=== PATIENT | female | born 1965 | race Caucasian/White ===

== ENCOUNTER 2019-07-16 05:54 | Inpatient (IN) | payer OTHER ==
[2019-07-03 11:28] VITALS: BMI 34.0
[2019-07-16] MEDS ORDERED: CEFAZOLIN 2 GM in DEXTROSE 5%-WATER - 50 ML IVPB ONE (06:24)
[2019-07-16] MEDS ORDERED: VANCOMYCIN 1,250 MG in DEXTROSE 5%-WATER - 250 ML IVPB ONE (06:24)
[2019-07-16] MEDS ORDERED: TRANEXAMIC ACID 1000 MG/10 ML VIAL IVPUSH ONE (06:24)
[2019-07-16] MEDS ORDERED: BUPIVACAINE HCL/PF 0.5% (5 MG/ML) 30 ML VIAL IJ ONE (06:51)
[2019-07-16] MEDS ORDERED: MIDAZOLAM HCL 2 MG/2 ML SINGLE DOSE VIAL ONE ×3 (06:51→08:53)
[2019-07-16] MEDS ORDERED: ceFAZolin SODIUM 1 GM VIAL ONE ×2 (07:46→10:33)
[2019-07-16] MEDS ORDERED: VANCOMYCIN 1,000 MG VIAL (RESTRICTED TO ID ONLY) ONE ×2 (07:46→07:51)
[2019-07-16] MEDS ORDERED: PROPOFOL 20 ML ONE ×4 (07:46→11:00)
--- NOTE | 2019-07-16 08:05 | HP ---
History & Physical Update - History History: No Change - Physical Physical: No Change - Assessment Assessment: No Change - Plan Plan: No Change (no changes since 06/26/19)
[2019-07-16] MEDS ORDERED: BENZOIN/ALOE VERA/STORAX/TOLU 58 ML BOTTLE ONE (09:13)
[2019-07-16] MEDS ORDERED: oxyCODONE HCL 5 MG TABLET PO PRN (09:31)
[2019-07-16] MEDS ORDERED: ONDANSETRON 4 MG/2 ML VIAL IVPUSH PRN ×2 (09:31→10:42)
[2019-07-16] MEDS ORDERED: PROMETHAZINE HCL 25 MG/1 ML VIAL IVPUSH PRN (09:31)
[2019-07-16] MEDS ORDERED: oxyCODONE HCL 10 MG SUSTAINED ACTING TABLET PO SCH (10:00)
[2019-07-16] MEDS ORDERED: MAGNESIUM HYDROX 2400MG/30ML ORAL SUSPENSION 30 ML CUP PO PRN (10:42)
[2019-07-16] MEDS ORDERED: MAG HYDROX/AL HYDROX/SIMETH 30 ML UNIT-DOSE CUP PO PRN (10:42)
[2019-07-16] MEDS ORDERED: ALBUTEROL SO4 HFA INHALER IH PRN (10:44)
[2019-07-16] MEDS ORDERED: IMMUNE GLOBULIN IV SCH (10:45)
[2019-07-16] MEDS ORDERED: LACTATED RINGERS SOLUTION 1,000 ML IV SCH (10:45)
[2019-07-16] MEDS ORDERED: [UNRECOGNIZED DRUG - OTHER] IV SCH (10:45)
--- NOTE | 2019-07-16 10:48 | PN ---
Progress Note (short form) - Note Progress Note: 54F s/p right BARBY POD #0. -Pain control. -Ancef 2g IV q6h x 3 doses post-op. -DVT PPx: - Chemical: ASA 81mg PO BID x 6 weeks. - Mechanical: RISA's, SCD's. -Incentive spirometry. -PT/OT/Rehab, OOB. -WBAT RLE. -Right hip precautions. -Hip abduction pillow: straps loose, not tight. -f/u AM labs. -f/u drain output. -Care per medical hospitalist team. -Discharge planning: f/u 7-10 days at [facility] [place] office; call for appointment; . -Will follow. Ishmael Horn MD (Orthopaedic Surgery).
--- NOTE | 2019-07-16 10:50 | OP ---
Operative Note - Note: Operative Date: 07/16/19 Pre-Operative Diagnosis: Right hip DJD Operation: Right BARBY Implants: [place]. Cup - Trident II-Triathlon, 52mm, cluster. 1 x 25mm acetabular screw. Poly - 28mm, neutral. Stem - Accolade II, 127 deg NSA, #4. Head - 28mm diameter, -4mm length Biolox/Delta Ceramic Post-Operative Diagnosis: Same as Pre-op Surgeon: Ishmael Horn Tele Marketing Executive: Hiro Horn Anesthesiologist/BUSINESS MACHINE OPERATOR: Pato Arauz Anesthesia: General Specimens Removed: Right femoral head Estimated Blood Loss (mls): 200 Drains & Tubes with Location: 1 x superficial HemoVac Fluid Volume Replaced (mls): 1,000 (Crystalloid) Operative Report Dictated: Yes
[2019-07-16] MEDS ORDERED: DEXAMETHASONE SOD PHOSPHATE 4 MG/1 ML VIAL ONE (11:07)
[2019-07-16] MEDS ORDERED: ONDANSETRON 4 MG/2 ML VIAL ONE ×2 (11:07→11:46)
[2019-07-16] MEDS: ACETAMINOPHEN 325 MG TABLET (FP) PO SCH ×3 (12:00→21:58)
--- NOTE | 2019-07-16 15:05 | HP ---
HISTORY OF PRESENT ILLNESS: 54 year-old female with a PMH significant for right HTN, HLD, Type II IDDM, HIV AIDS, CVID, granulomatous lung disease, recurrent HSV, Keerthi's syndrome, asthma, RICCARDO on CPAP, GERD, and right hip DJD s/p right total hip arthroplasty with Dr. Ishmael Horn on 07/16/2019. 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 Recurrent HSV on suppressive therapy Keerthi's syndrome Asthma GERD RICCARDO on CPAP 11cm H2O CFlex+1 SIMPLUS FF PAST SURGICAL HISTORY: Cholecystectomy Tonsillectomy NE Total hip arthroplasty 2008 Social History: single Smoking: former; smoked [id number] Alcohol: no Drugs: no Allergies moxifloxacin [From Avelox] Allergy (Severe, Verified 07/03/19 10:52) Rash HOME MEDICATIONS: Home Medications Medication Instructions Recorded Albuterol Sulfate Inhaler - 1 - 2 inh PO QID PRN 07/03/19 [Ventolin Hfa Inhaler -] Amlodipine Besylate 10 mg PO DAILY 07/03/19 Azelastine HCl 137 mcg NS DAILY 07/03/19 Bimatoprost [Lumigan] 1 drop OU HS 07/03/19 Calcium Carbonate [Calcium] 600 mg PO DAILY 07/03/19 Dolutegravir Sodium [Tivicay] 50 mg PO HS 07/03/19 Emtricitabine/Tenofov Alafenam 1 each PO HS 07/03/19 [Descovy 200-25 mg Tablet (Nf)] Ferrous Sulfate 325 mg PO DAILY 07/03/19 Fexofenadine HCl 180 mg PO DAILY 07/03/19 Fluticasone Propionate 16 gm NS BID 07/03/19 Immun Glob G(IgG)-[place]/Maltose 48 ml IV ASDIR 07/03/19 [Cutaquig 16.5% (8 G/48 ml) Vl] Insulin Glargine,Hum.rec.anlog 35 unit SQ HS 07/03/19 [Lantus Solostar] Liraglutide [Victoza -] 1.8 mg SQ DAILY 07/03/19 Lisinopril [Prinivil -] 40 mg PO DAILY 07/03/19 Mometasone/Formoterol [Dulera 200 2 inh IH BID 07/03/19 Mcg/5 Mcg Inhaler] Montelukast Sodium [Singulair] 10 mg PO HS 07/03/19 Omeprazole 20 mg PO DAILY 07/03/19 Oxycodone HCl 30 mg PO Q6H 07/03/19 Pioglitazone HCl [Actos] 30 mg PO DAILY 07/03/19 Rosuvastatin Calcium [Crestor] 10 mg PO HS 07/03/19 Ursodiol 250 mg PO BID 07/03/19 Valacyclovir HCl [Valtrex] 1,000 mg PO DAILY 07/03/19 metFORMIN HCL [Metformin HCl] 850 mg PO BID 07/03/19 Prednisone [Prednisone 50 MG 50 mg PO ONCE 07/16/19 TABLETS] REVIEW OF SYSTEMS CONSTITUTIONAL: Absent: fever, chills, diaphoresis, generalized weakness, malaise, loss of appetite, weight change HEENT: Absent: rhinorrhea, nasal congestion, throat pain, throat swelling, difficulty swallowing, mouth swelling, ear pain, eye pain, visual changes CARDIOVASCULAR: Absent: chest pain, syncope, palpitations, irregular heart rate, lightheadedness , peripheral edema RESPIRATORY: Absent: cough, shortness of breath, dyspnea with exertion, orthopnea, wheezing, stridor, hemoptysis GASTROINTESTINAL: Absent: abdominal pain, abdominal distension, nausea, vomiting, diarrhea, constipation, melena, hematochezia GENITOURINARY: Absent: dysuria, frequency, urgency, hesitancy, hematuria, flank pain, genital pain MUSCULOSKELETAL: Absent: myalgia, arthralgia, joint swelling, back pain, neck pain SKIN: Absent: rash, itching, pallor HEMATOLOGIC/IMMUNOLOGIC: Absent: easy bleeding, easy bruising, lymphadenopathy, frequent infections ENDOCRINE: Absent: unexplained weight gain, unexplained weight loss, heat intolerance, cold intolerance NEUROLOGIC: Absent: headache, focal weakness or paresthesias, dizziness, unsteady gait, seizure, mental status changes, bladder or bowel incontinence PSYCHIATRIC: Absent: anxiety, depression, suicidal or homicidal ideation, hallucinations. PHYSICAL EXAMINATION Vital Signs - 24 hr 07/16/19 07/16/19 07/16/19 06:30 11:26 11:30 Temperature 98.5 F 97.5 F L Pulse Rate 76 78 62 Respiratory 18 16 16 Rate Blood Pressure 144/76 116/64 100/70 O2 Sat by Pulse 95 95 Oximetry (%) 07/16/19 07/16/19 07/16/19 11:35 11:40 11:55 Temperature Pulse Rate 68 62 65 Respiratory 16 16 16 Rate Blood Pressure 104/56 L 94/74 135/75 O2 Sat by Pulse 95 95 97 Oximetry (%) 07/16/19 07/16/19 07/16/19 12:05 12:10 12:31 Temperature 97.5 F L 97.4 F L Pulse Rate 62 62 71 Respiratory 16 16 18 Rate Blood Pressure 122/78 122/78 112/60 O2 Sat by Pulse 97 97 95 Oximetry (%) 07/16/19 13:35 Temperature 97.4 F L Pulse Rate 76 Respiratory 19 Rate Blood Pressure 123/63 O2 Sat by Pulse 96 Oximetry (%) GENERAL: Awake, alert, and fully oriented, in no acute distress. HEAD: Normal with no signs of trauma. EYES: Pupils equal, round and reactive to light, extraocular movements intact, sclera anicteric, conjunctiva clear. No lid lag. EARS, NOSE, THROAT: Ears normal, nares patent, oropharynx clear without exudates. Moist mucous membranes. NECK: Normal range of motion, supple without lymphadenopathy, JVD, or masses. LUNGS: Breath sounds equal, clear to auscultation bilaterally. No wheezes, and no crackles. No accessory muscle use. HEART: Regular rate and rhythm, normal S1 and S2 without murmur, rub or gallop. ABDOMEN: Soft, nontender, not distended, normoactive bowel sounds, no guarding, no rebound, no masses. No hepatomegaly or splenomegaly. MUSCULOSKELETAL: Normal range of motion at all joints. No bony deformities or tenderness. No CVA tenderness. UPPER EXTREMITIES: 2+ pulses, warm, well-perfused. No cyanosis. No clubbing. No peripheral edema. LOWER EXTREMITIES: 2+ pulses, warm, well-perfused. No calf tenderness. No peripheral edema. NEUROLOGICAL: Cranial nerves II-XII intact. Normal speech. Normal gait. PSYCHIATRIC: Cooperative. Good eye contact. Appropriate mood and affect. SKIN: Warm, dry, normal turgor, no rashes or lesions noted, normal capillary refill. Laboratory Results - last 24 hr 07/16/19 07/16/19 06:33 11:43 POC Glucometer 158 127 Pre op BUN 14 Cr 0.5 Hgb 13.0 Intra op Vanc 1g; Ancef 2g, redosed 1g EBL 200mL LR 1100mL ASSESSMENT/PLAN: 54 year-old female with a PMH significant for right HTN, HLD, Type II IDDM, HIV AIDS, CVID, granulomatous lung disease, recurrent HSV, [place]'s syndrome, asthma, RICCAROD on CPAP, GERD, and right hip DJD s/p right total hip arthroplasty with Dr. Ishmael Horn on 07/16/2019. 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 treatment --duonebs TID scheduled and albuterol neb PRN Recurrent HSV on suppressive therapy Keerthi's syndrome --continue valacyclovir PO GERD --protonix RICCARDO on CPAP 11cm H2O CFlex+1 SIMPLUS FF --reviewed pulmonary pre-op evaluation, use CPAP whenever sleeping or receiving sedating medications; nursing 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 Full code. Visit type - Emergency Visit Emergency Visit: Yes ED Registration Date: 07/16/19 Care time: The patient presented to the Emergency Department on the above date and was hospitalized for further evaluation of their emergent condition. - New Patient This patient is new to me today: Yes Date on this admission: 07/16/19 - Critical Care Critical Care patient: No
[2019-07-16] MEDS ORDERED: ALBUTEROL SO4 0.083% IH SOL 2.5 MG/3 ML VIAL.NEB. NEB PRN (16:17)
--- NOTE | 2019-07-16 16:23 | OP ---
DATE OF OPERATION: 07/16/2018 SURGEON: Ishmael Horn MD PUNCH OPERATOR: Hiro Horn MD; Maxine Amos PA-C PREOPERATIVE DIAGNOSIS: Osteoarthritis, right hip. POSTOPERATIVE DIAGNOSIS: Osteoarthritis, right hip, in an HIV-positive patient. OPERATION PERFORMED: Right cemented total hip arthroplasty. ANESTHESIA: Spinal anesthesia with conscious sedation. ANTIBIOTICS GIVEN: Ancef 2 g, vancomycin 1 g preoperative, Ancef 1 g given at the time of seating of the components, liberal washout throughout the operation. OPERATION IN DETAIL: The patient was correctly identified, brought in the operating room. The right lower extremity was prepped and draped in the routine manner with Betadine scrub solution, wiped off with alcohol, DuraPrep applied. A free drape was applied to the right lower extremity. Imaging was available for intraoperative evaluation. Timeout was called. With the hip and knee flexed at 45 degrees, incision was made centered over the greater trochanter, proximal lateral thigh incision. We opened the subcutaneous tissues. The fascia was adherent to the underlying musculature, which is an unusual finding, required sharp dissection to dissect the actual fascia off the actual muscle. Charnley retractors were placed in the subfascial plane to expose the hip abductor mechanism using an anterior biased direct lateral approach. The dissection was taken down to the anterior aspect of the femoral neck. From superolateral to inferomedially, the capsule was incised and radial incisions were made anteriorly and then the entire capsule was lifted from the femoral neck and head to expose the head and neck clearly under vision. With flexion, adduction, external rotation mechanism, the hip was dislocated with no difficulty. Blunt Hohmanns were placed around the femoral neck from superior and inferior. The femoral neck cut was made. Because of the shortening of the right lower extremity, we elected to save more femoral neck than usual in order to equilibrate leg length. As a result of this, the neck cut was made about 1.5 cm above the lesser trochanter. Anterior, posterior, inferior retractors were inserted. The appropriate obturator externus and internus muscles, which were tight external rotators, were transected. This freed the external rotational deformity significantly. A Charnley pin was placed in the superolateral aspect of the bone bed to hold the muscle out of harm's way. The acetabulum, the labrum, and peripheral tissue was resected. Reaming was to size 52, and a size 52 Trident II titanium cup with a 28-mm neutral liner was inserted. The press-fit was solid. It was about 10 degrees anteverted and the cup was closed in inclination of about 40 degrees. I seated 1 screw to augment fixation of the press-fit, simply based on the fact that this lady's osteoarthritis is most likely secondary to retroviral drugs and I was unhappy about the quality of the bone bed to hold the cup appropriately and thus augmented its fixation. Once it had been performed and we were very satisfied with the seating of the cup and how it was positioned, no peripheral bone was necessary to osteotomize. The hip was adducted, externally rotated, the hip abductor mechanism held out of harm's way. The jukebox checker was utilized to enter the trochanter. The lateral reamer was sunk into the bone. The broaching was sequentially up to size 4, and a trial with a high-offset 127-mm neck shaft angle Accolade broach with a -4 ceramic head produced the reduction of the hip with full stability in flexion, adduction, internal rotation, as well as extension and external rotation, and enabled a complete stable hip. The leg length, when taking the pelvis into account, both legs were measured with the pelvis square and 90 degrees to the intercristal plane, the leg length was equal, the axillary line limb was perfect. Once this had been performed, we elected to go ahead with the definitive components. One gram of Ancef was then inserted. A size 4 Accolade stem, that is, 127-degree stem with a -4 ceramic head applied to the trunnion was inserted. This was reduced into position, giving the exact same findings as noted above. The wounds were thoroughly lavaged throughout the operation. The closure was as follows: Hip abductor mechanism with number 1 Vicryl, fascia 1 Vicryl, subcutaneous 1 and 2-0 Vicryl, skin with jeanette. A 1/8-inch Hemovac in subfascial plane. We used jeanette instead of intracuticular suture because of her general tissue status. No complications. Postoperative x-rays revealed excellent seating of the implants. MD PIERO [id number]
[2019-07-16] MEDS: CEFAZOLIN 2 GM/D5W 2 GM/50 ML ML IVPB SCH ×2 (16:38→22:11)
[2019-07-16] MEDS: oxyCODONE HCL 5 MG TABLET PO PRN ×3 (16:38→23:24)
[2019-07-16] MEDS: ALBUTEROL SO4 2.5/IPRATROPIUM 0.5 INH SOL 3 ML VIAL.NEB. NEB SCH (20:03)
[2019-07-16] MEDS ORDERED: PT OWN MED DRAWER 7, Y5N ONE (21:43)
[2019-07-16] MEDS: ASPIRIN 81 MG CHEWABLE TABLETS PO SCH (21:58)
[2019-07-16] MEDS: MONTELUKAST NA 10 MG TABLET PO SCH (21:59)
[2019-07-16] MEDS: ROSUVASTATIN CA 10 MG TABLET (FP) PO SCH (21:59)
[2019-07-16] MEDS ORDERED: PATIENT'S OWN MEDICATION (NON-FORMULARY) (Ursodiol [Ursodiol] 250 MG) PO SCH (22:00)
[2019-07-16] MEDS: EMTRICITABINE/TENOFOV ALAFENAM (DESCOVY) TABLET PO SCH (22:00)
[2019-07-16] MEDS: DOLUTEGRAVIR SODIUM 50 MG TABLET (NON-FORMULARY) PO SCH (22:01)
[2019-07-16] MEDS: FLUTICASONE PROP 0.05% 16 GM NASAL SPRAY NS SCH (22:03)
[2019-07-16] MEDS: SENNOSIDES/DOCUSATE COMBO (SENNA PLUS) TABLET (UD) PO SCH (22:04)
[2019-07-16] MEDS: BUDESONIDE/FORMETEROL FUMARATE 160/4.5 mcg INHALER IH SCH (22:05)
[2019-07-16] MEDS: LATANOPROST 0.005% OPHTH SOLN 2.5ML BOTTLE OU SCH (22:06)
[2019-07-16] MEDS: INSULIN (LEVEMIR) 100 UNITS/ML UNITS SQ SCH (22:15)
[2019-07-17] MEDS: oxyCODONE HCL 5 MG TABLET PO PRN ×4 (02:42→21:18)
[2019-07-17] MEDS: ACETAMINOPHEN 325 MG TABLET (FP) PO SCH ×4 (03:04→21:18)
[2019-07-17] MEDS: CEFAZOLIN 2 GM/D5W 2 GM/50 ML ML IVPB SCH (03:04)
--- NOTE | 2019-07-17 07:25 | PN ---
Progress Note, Physician Chief Complaint: POD# 1 s/p THR. c/o moderate post-operative pain. Awaiting PT to get OOB History of Present Illness: 54 year-old female with a PMH significant for right HTN, HLD, Type II IDDM, HIV AIDS, CVID, granulomatous lung disease, recurrent HSV, [place]'s syndrome, asthma, RICCARDO on CPAP, GERD, and right hip DJD s/p right total hip arthroplasty with Dr. Ishmael Horn on 07/16/2019. - Current Medication List Current Medications: Active Medications Acetaminophen (Tylenol -) 650 mg PO Q6H [facility] Stop: 07/19/19 09:44 Last Admin: 07/17/19 03:04 Dose: 650 mg Al Hydroxide/Mg Hydroxide (Mylanta Oral Suspension -) 30 ml PO Q4H PRN PRN Reason: DYSPEPSIA Albuterol Sulfate (Ventolin 0.083% Nebulizer Soln -) 1 amp NEB Q4H PRN PRN Reason: SHORT OF BREATH/WHEEZING Albuterol/Ipratropium (Duoneb -) 1 amp NEB RTID [facility] Last Admin: 07/16/19 20:03 Dose: 1 amp Amlodipine Besylate (Norvasc -) 10 mg PO DAILY [facility] Aspirin (Asa -) 81 mg PO BID [facility] Last Admin: 07/16/19 21:58 Dose: 81 mg Budesonide/Formoterol Fumarate (Symbicort 160/4.5mcg -) 2 puff IH BID [facility] Last Admin: 07/16/19 22:05 Dose: 2 sprays Calcium Carbonate (Os-Greg 500mg -) 500 mg PO DAILY [facility] Ferrous Sulfate (Feosol -) 325 mg PO DAILY [facility] Fluticasone Propionate (Flonase -) 1 spray NS BID [facility] Last Admin: 07/16/19 22:03 Dose: 1 spray Insulin Detemir (Levemir Vial) 35 units SQ HS [facility] Last Admin: 07/16/19 22:15 Dose: 35 units Latanoprost (Xalatan 0.005% Eye Drops -) 1 drop OU HS [facility] Last Admin: 07/16/19 22:06 Dose: 1 drp Lisinopril (Prinivil) 40 mg PO DAILY [facility] Magnesium Hydroxide (Milk Of Magnesia -) 30 ml PO PRN PRN PRN Reason: CONSTIPATION Montelukast Sodium (Singulair -) 10 mg PO [facility] Last Admin: 07/16/19 21:59 Dose: 10 mg Non-Formulary Medication (Ursodiol [Ursodiol]) 250 mg PO BID [facility] Ondansetron HCl (Zofran Injection) 4 mg IVPUSH Q6H PRN PRN Reason: NAUSEA AND/OR VOMITING Ondansetron HCl (Zofran Injection) 4 mg IVPUSH Q6H PRN PRN Reason: NAUSEA Last Admin: 07/16/19 11:53 Dose: 4 mg Oxycodone HCl (Roxicodone -) 5 mg PO Q3H PRN PRN Reason: PAIN LEVEL 1-5 Oxycodone HCl (Roxicodone -) 10 mg PO Q3H PRN PRN Reason: PAIN LEVEL 6-10 Last Admin: 07/17/19 07:00 Dose: 10 mg Pantoprazole Sodium (Protonix -) 40 mg PO DAILY [facility] Promethazine HCl (Phenergan Injection -) 12.5 mg IVPUSH Q6H PRN PRN Reason: NAUSEA-FOR RESCUE AFTER 15 MIN Rosuvastatin Calcium (Crestor -) 10 mg PO [facility] Last Admin: 07/16/19 21:59 Dose: 10 mg Senna/Docusate Sodium (Pericolace -) 2 tablet PO BID [facility] Last Admin: 07/16/19 22:04 Dose: 2 tablet Valacyclovir HCl (Valtrex -) 1,000 mg PO DAILY [facility] - Objective Vital Signs: Vital Signs Temperature 97.8 F 07/17/19 06:00 Pulse Rate 77 07/17/19 06:00 Respiratory Rate 17 07/17/19 06:00 Blood Pressure 121/65 07/17/19 06:00 O2 Sat by Pulse Oximetry (%) 97 07/17/19 02:00 Constitutional: Yes: Well Nourished, No Distress, Calm Eyes: Yes: WNL, Conjunctiva Clear HENT: Yes: WNL, Atraumatic, Normocephalic Neck: Yes: WNL, Supple, Trachea Midline Cardiovascular: Yes: WNL, Regular Rate and Rhythm Respiratory: Yes: WNL, Regular, CTA Bilaterally Gastrointestinal: Yes: WNL, Normal Bowel Sounds ...Rectal Exam: Yes: Deferred Genitourinary: Yes: WNL Breast(s): Yes: WNL Musculoskeletal: Yes: Back Pain Edema: No Peripheral Pulses WNL: Yes Peripheral Pulses: Left Radial: 2+, Right Radial: 2+, Left Doralis Pedis: 2+, Right Dorsalis Pedis: 2+, Left Femoral: 2+, Right Femoral: 2+ Integumentary: Yes: WNL Wound/Incision: Yes: Clean/Dry, Dressing Dry and Intact, Other ( +Hemovac drain) ...Motor Strength: WNL Psychiatric: Yes: WNL - ....Imaging X-ray: Report Reviewed (Hip: hip replace,ment with jeanette and soft tissue air) Problem List - Problems (1) HTN (hypertension) Assessment/Plan: normotensive c/w amlodipine, lisinopril Code(s): I10 - ESSENTIAL (PRIMARY) HYPERTENSION (2) HLD (hyperlipidemia) Assessment/Plan: c/w rosuvastatin Code(s): E78.5 - HYPERLIPIDEMIA, UNSPECIFIED (3) Diabetes type 2, controlled Assessment/Plan: BS well controlled BGM with Novolog sliding scale coverage c/w Levemir 35U hs diabetic diet Code(s): E11.9 - TYPE 2 DIABETES MELLITUS WITHOUT COMPLICATIONS (4) HIV (human immunodeficiency virus infection) Assessment/Plan: c/w Joana and Gem continue to monitor very closely for s/s of infection given immunocomprised state Code(s): B20 - HUMAN IMMUNODEFICIENCY VIRUS [HIV] DISEASE (5) Common variable immunodeficiency Assessment/Plan: on IVIG therapy [id number], next dose 08/05/2019 Code(s): D83.9 - COMMON VARIABLE IMMUNODEFICIENCY, UNSPECIFIED (6) Granulomatous lung disease Assessment/Plan: 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 treatment c/w duo nebs, flonase, singular Code(s): J84.10 - PULMONARY FIBROSIS, UNSPECIFIED (7) HSV (herpes simplex virus) infection Assessment/Plan: no active outbreaks c/w valcyclovir Code(s): B00.9 - HERPESVIRAL INFECTION, UNSPECIFIED (9) Asthma Assessment/Plan: stable c/w duo nebs, flonase, singular Code(s): J45.909 - UNSPECIFIED ASTHMA, UNCOMPLICATED (10) GERD (gastroesophageal reflux disease) Code(s): K21.9 - GASTRO-ESOPHAGEAL REFLUX DISEASE WITHOUT ESOPHAGITIS (11) RICCARDO on CPAP Assessment/Plan: 11cm H2O CFlex+1 SIMPLUS FF Code(s): G47.33 - OBSTRUCTIVE SLEEP APNEA (ADULT) (PEDIATRIC); Z99.89 - DEPENDENCE ON OTHER ENABLING MACHINES AND DEVICES (12) Prophylactic measure Assessment/Plan: FEN Fluids: adequate PO intake Electrolytes: monitor & replete as needed Nutrition: diabetic diet DVT moderate risk ASA 81mg PO BID x 6 weeks scd, early ambulation Dispo Maintain as inpatient full code discharge planning to SNF/Rehab Code(s): Z29.9 - ENCOUNTER FOR PROPHYLACTIC MEASURES, UNSPECIFIED (13) Status post total hip replacement, right Assessment/Plan: POD #1 --perioperative antibiotics per surgery-Ancef --pain management per surgery --ASA 81mg BID x 6 weeks --protonix --bowel regimen-miralax --incentive spirometry --Hemovac drain (60cc overnight), monitor output Code(s): Z96.641 - PRESENCE OF RIGHT ARTIFICIAL HIP JOINT (14) Hypomagnesemia Assessment/Plan: Mg 1.6 MagOx 800mg x 1 continue to monitor Code(s): E83.42 - HYPOMAGNESEMIA (15) Hypokalemia Assessment/Plan: K 3.6 K 20MEq x 1 continue to monitor Code(s): E87.6 - HYPOKALEMIA (16) Chronic pain following surgery or procedure Assessment/Plan: history of choronic pain on oxycodone 30mg q6h at home started on oxycontin 10mg BID as per surgery monitor level of pain bowel regimine Code(s): G89.28 - OTHER CHRONIC POSTPROCEDURAL PAIN Visit type - Emergency Visit Emergency Visit: Yes ED Registration Date: 07/16/19 Care time: The patient presented to the Emergency Department on the above date and was hospitalized for further evaluation of their emergent condition. - New Patient This patient is new to me today: Yes Date on this admission: 07/17/19 - Critical Care Critical Care patient: No - Discharge Referral Referred to [facility] Med P.C.: No
--- NOTE | 2019-07-17 07:54 | PN ---
Progress Note (short form) - Note Progress Note: Post op day#1.S/P RTH Arthropasty under spinal with R paravertebral block uneventful.Patient stable and c/o some pain for which she is on medication.No any anesthesia related problem.Patient DC from the anesthesia care.
[2019-07-17 07:58] LABS: CALCIUM 8.4 mg/dl (8.5-10); CREATININE 0.6 mg/dl (0.55-1.3); MAGNESIUM 1.6 mg/dL (1.8-2.4); POTASSIUM 3.6 mmol/L (3.5-5.1)
[2019-07-17] MEDS ORDERED: MAGNESIUM OXIDE 400 MG TABLET (FP) PO ONE (08:02)
[2019-07-17] MEDS ORDERED: POTASSIUM CHLORIDE TABS 20 MEQ TABLET.ER (FP) PO ONE (08:02)
[2019-07-17 08:14] LABS: BASO % 0.2 % (0-2.0); EOS % 0.4 % (0-4.5); HEMATOCRIT 34.7 % (32.4-45.2); HEMOGLOBIN 11.6 GM/dl (10.7-15.3); LYMPH % 20.7 % (8-40); MCH 30.3 pg (25.7-33.7); MCHC 33.3 g/dl (32.0-36.0); MEAN CELL VOLUME 90.9 fl (80-96); MONO % 8.7 % (3.8-10.2); PLATELET COUNT 327 K/MM3 (134-434); RBC 3.82 M/mm3 (3.60-5.2); RDW 14.9 % (11.6-15.6)
--- NOTE | 2019-07-17 08:41 | PN ---
Progress Note (short form) - Note Progress Note: Surgery POD #1 Right total hip arthroplasty patient seen and examined at bedside. Patient states she is having a lot of pain. She states that she was taking oxycodone 30mg q6hr at home for chronic pain. She has been OOB with assist to the bathroom and voiding. She is tolerating her diet and denies any CP, SOB, N/ V fever or chills. Vital Signs Temp 97.8 F 07/17/19 06:00 Pulse 77 07/17/19 06:00 Resp 17 07/17/19 06:00 BP 121/65 07/17/19 06:00 Pulse Ox 97 07/17/19 08:26 Intake & Output 07/16/19 07/16/19 07/17/19 11:59 23:59 11:59 Intake Total 1100 450 150 Output Total 460 160 Balance 1100 -10 -10 Weight 186 lb Intake: IV 1100 150 IVPB 150 Oral 300 Output: Drainage 160 60 Right Hip 120 60 Urine 300 100 Void 300 100 Other: Voiding Method Bedpan Toilet # Unmeasured Voids Void 2 Bowel Movement No Height 5 ft 2 in Body Mass Index (BMI) 34.0 Weight Measurement Method Standing Scale CBC, BMP 07/17/19 07:00 07/17/19 07:00 PE: A&Ox3, NAD Unlabored resp on RA Right hip, dressing c/d/i with surrounding tissue intact and no evidence of tracking erythema, no active d/c. Drain in good position with 220cc post op output. right thigh with diffuse edema- appropriate to status, compartments soft and supple B/L LE compartments soft, supple and non-tender with +2 DP pulses. 5/5 dorsi/ plantar flexion Problem List - Problems (1) Status post total hip replacement, right Assessment/Plan: POD #1 right BARBY. Patient doing well with pain as expected. We exclusively about spoke about goals of care today. -Pain control-added OxyContin 10mg BID -DVT PPx: - Chemical: ASA 81mg PO BID x 6 weeks. - Mechanical: RISA's, SCD's. -Incentive spirometry. -PT/OT/Rehab, OOB. -WBAT RLE. -Right hip precautions. -Hip abduction pillow: straps loose, not tight. -f/u AM labs. -f/u drain output. -Care per medical hospitalist team. -Discharge planning for Rehab: f/u 7-10 days at [facility] office ; call for appointment; . -Will follow. Code(s): Z96.641 - PRESENCE OF RIGHT ARTIFICIAL HIP JOINT
[2019-07-17] MEDS ORDERED: PT OWN MED DRAWER 7, Y5N ONE ×2 (09:10→20:24)
[2019-07-17] MEDS: valACYclovir HCL 500 MG TABLET (FP) PO SCH (09:20)
[2019-07-17] MEDS: oxyCODONE HCL 10 MG SUSTAINED ACTING TABLET PO SCH ×2 (09:22→21:17)
[2019-07-17] MEDS: ASPIRIN 81 MG CHEWABLE TABLETS PO SCH ×2 (09:24→21:17)
[2019-07-17] MEDS: CALCIUM (OYSTER SHELL) 500 MG TABLET (FP) PO SCH (09:24)
[2019-07-17] MEDS: ALBUTEROL SO4 2.5/IPRATROPIUM 0.5 INH SOL 3 ML VIAL.NEB. NEB SCH ×3 (09:25→21:18)
[2019-07-17] MEDS: FERROUS SO4 325 MG TABLET (FP) PO SCH (09:26)
[2019-07-17] MEDS: POLYETHYLENE GLYCOL 3350 119 GM BTL PO SCH (09:26)
[2019-07-17] MEDS: SENNOSIDES/DOCUSATE COMBO (SENNA PLUS) TABLET (UD) PO SCH ×2 (09:26→21:17)
[2019-07-17] MEDS: PANTOPRAZOLE 40 MG TABLET PO SCH (09:27)
[2019-07-17] MEDS: LISINOPRIL 20 MG TABLET (FP) PO SCH (09:38)
[2019-07-17] MEDS: FLUTICASONE PROP 0.05% 16 GM NASAL SPRAY NS SCH (09:39)
[2019-07-17] MEDS: BUDESONIDE/FORMETEROL FUMARATE 160/4.5 mcg INHALER IH SCH ×2 (09:39→21:18)
[2019-07-17] MEDS ORDERED: PATIENT'S OWN MEDICATION (NON-FORMULARY) (Omeprazole 20 MG) PO SCH (10:00)
[2019-07-17] MEDS ORDERED: amLODIPine BESYLATE 10 MG TABLET (FP) PO SCH (10:00)
[2019-07-17] MEDS ORDERED: PATIENT'S OWN MEDICATION (NON-FORMULARY) (Azelastine Hcl [Azelastine Hcl] 137 MCG) NS SCH (10:00)
[2019-07-17] MEDS ORDERED: LIRAGLUTIDE 0.6 MG/0.1 ML PEN.INJCTR SQ SCH (10:00)
[2019-07-17] MEDS ORDERED: PIOGLITAZONE HCL 15 MG TABLET PO SCH (10:00)
[2019-07-17] MEDS: DOLUTEGRAVIR SODIUM 50 MG TABLET (NON-FORMULARY) PO SCH (21:17)
[2019-07-17] MEDS: EMTRICITABINE/TENOFOV ALAFENAM (DESCOVY) TABLET PO SCH (21:17)
[2019-07-17] MEDS: ROSUVASTATIN CA 10 MG TABLET (FP) PO SCH (21:17)
[2019-07-17] MEDS: MONTELUKAST NA 10 MG TABLET PO SCH (21:17)
[2019-07-17] MEDS: INSULIN (LEVEMIR) 100 UNITS/ML UNITS SQ SCH (22:24)
[2019-07-17] MEDS: LATANOPROST 0.005% OPHTH SOLN 2.5ML BOTTLE OU SCH (22:24)
[2019-07-18] MEDS: ACETAMINOPHEN 325 MG TABLET (FP) PO SCH ×4 (04:23→22:20)
[2019-07-18] MEDS: FLUTICASONE PROP 0.05% 16 GM NASAL SPRAY NS SCH ×3 (06:24→22:20)
[2019-07-18] MEDS ORDERED: PT OWN MED DRAWER 7, Y5N ONE ×2 (06:52→21:31)
--- NOTE | 2019-07-18 07:19 | PN ---
Progress Note (short form) - Note Progress Note: ORTHOPAEDIC SURGERY POD #2 s/p Right total hip arthroplasty No acute events over night per RN notes. Alert. Ambulated w/ assistance back from commode. Now sitting in recliner with LE in extension and towel roll under heels. Voiding spontaneously. Tolerating PO diet. PT notes appreciated. Denies n/v/f/c, CP, palpitations, SOB or JACOBS. Last Vital Signs Temp Pulse Resp BP Pulse Ox 99.4 F 105 H 17 100/49 L 95 07/18/19 05:00 07/18/19 05:00 07/18/19 05:00 07/18/19 05:00 07/18/19 07:08 PE: GEN: A&Ox3, NAD PULM: Unlabored resp on RA Right hip: dressing c/d/i with surrounding tissue intact and no evidence of tracking erythema, no active d/c. Drain dc'd on rounds. right thigh with diffuse edema- appropriate to status, compartments soft and supple B/L LE compartments soft, supple and non-tender with +2 DP pulses. 5/5 dorsi/ plantar flexion Problem List - Problems (1) Status post total hip replacement, right Assessment/Plan: POD #2 right BARBY. Patient doing well with pain as expected. We exclusively about spoke about goals of care today. -Pain control-added OxyContin 10mg BID -DVT PPx: - Chemical: ASA 81mg PO BID x 6 weeks. - Mechanical: RISA's, SCD's. -Incentive spirometry. -PT/OT/Rehab, OOB. -WBAT RLE. -Right hip precautions. -Hip abduction pillow: straps loose, not tight. -f/u AM labs. -Care per medical hospitalist team. -Discharge planning for Rehab 07/19/19 - f/u 7-10 days at [facility] office; call for appointment; . Code(s): Z96.641 - PRESENCE OF RIGHT ARTIFICIAL HIP JOINT
[2019-07-18 07:51] LABS: HEMATOCRIT 34.8 % (32.4-45.2); HEMOGLOBIN 11.7 GM/dl (10.7-15.3); MCH 30.6 pg (25.7-33.7); MCHC 33.8 g/dl (32.0-36.0); MEAN CELL VOLUME 90.6 fl (80-96); MEAN PLT VOLUME 9.1 fl (7.5-11.1); PLATELET COUNT 300 K/MM3 (134-434); RBC 3.84 M/mm3 (3.60-5.2); WHITE BLOOD COUNT 12.8 K/mm3 (4.0-10.8)
[2019-07-18 07:53] LABS: ALBUMIN 3.1 g/dl (3.4-5.0); CALCIUM 8.6 mg/dl (8.5-10); CREATININE 0.6 mg/dl (0.55-1.3); MAGNESIUM 1.6 mg/dL (1.8-2.4); POTASSIUM 3.8 mmol/L (3.5-5.1); TOT PROT 6.7 g/dl (6.4-8.2)
[2019-07-18] MEDS: oxyCODONE HCL 5 MG TABLET PO PRN (08:06)
[2019-07-18] MEDS ORDERED: SODIUM CHLORIDE 0.9% 500 ML INFUS.BAG IV ONE (09:15)
[2019-07-18] MEDS ORDERED: MAGNESIUM OXIDE 400 MG TABLET (FP) PO ONE (09:15)
[2019-07-18] MEDS: FERROUS SO4 325 MG TABLET (FP) PO SCH (09:38)
[2019-07-18] MEDS: SENNOSIDES/DOCUSATE COMBO (SENNA PLUS) TABLET (UD) PO SCH ×2 (09:39→22:19)
[2019-07-18] MEDS: LISINOPRIL 20 MG TABLET (FP) PO SCH (09:39)
[2019-07-18] MEDS: ASPIRIN 81 MG CHEWABLE TABLETS PO SCH ×2 (09:39→22:19)
[2019-07-18] MEDS: oxyCODONE HCL 10 MG SUSTAINED ACTING TABLET PO SCH ×2 (09:39→22:19)
[2019-07-18] MEDS: CALCIUM (OYSTER SHELL) 500 MG TABLET (FP) PO SCH (09:40)
[2019-07-18] MEDS: valACYclovir HCL 500 MG TABLET (FP) PO SCH (09:40)
[2019-07-18] MEDS: PANTOPRAZOLE 40 MG TABLET PO SCH (09:40)
[2019-07-18] MEDS: POLYETHYLENE GLYCOL 3350 119 GM BTL PO SCH (09:42)
[2019-07-18] MEDS: ALBUTEROL SO4 2.5/IPRATROPIUM 0.5 INH SOL 3 ML VIAL.NEB. NEB SCH ×2 (09:42→20:30)
[2019-07-18] MEDS: BUDESONIDE/FORMETEROL FUMARATE 160/4.5 mcg INHALER IH SCH ×2 (09:43→22:21)
[2019-07-18] MEDS ORDERED: SIMETHICONE 80 MG TAB.CHEW (FP) PO PRN (10:35)
[2019-07-18] MEDS ORDERED: SODIUM PHOSPHATE/NA BIPHOS 133 ML ENEMA PR ONE (10:45)
--- NOTE | 2019-07-18 16:04 | PATH ---
Surgical Pathology Report Patient Name: SHAQUILLE STONE Med. Rec. #: [id number] /Age/Gender: 1965 (Age: 54) / F Account: [id number] Location: [facility] MED-SURG Taken: 07/16/2019 Received: 07/16/2019 Reported: 07/18/2019 Physicians: Ishmael Horn M.D. Specimen(s) Received RIGHT FEMORAL HEAD Clinical History Osteoarthritis right hip Final Diagnosis FEMORAL HEAD, RIGHT, TOTAL HIP REPLACEMENT: DEGENERATIVE JOINT DISEASE. Electronically Signed Maxine Roblero M.D. Gross Description Received in formalin, labeled "right femoral head," is a 4.2 x 4.2 x 3.7 cm. femoral head with a 1.3 cm in length portion of femoral neck attached. The margin of resection is smooth. No areas of eburnation are identified. The articular surface is rowley-yellow and focally lifting away from the underlying bone. The underlying trabecular bone is focally soft. A outreach representative section is submitted in one cassette, following decalcification. /07/17/2019 [facility]07/17/2019
--- NOTE | 2019-07-18 18:43 | PN ---
Physical Exam: Subjective: Patient seen and examined at bedside, feeling well, in good spirits , Cushinoid features on exam, scheduled for DC tomorrow to [facility]. Objective: GENERAL: Awake, alert, and fully oriented, in no acute distress, undergoing PT HEAD: Normal with no signs of trauma. EYES: Pupils equal, round and reactive to light, extraocular movements intact, sclera anicteric, conjunctiva clear. No lid lag. EARS, NOSE, THROAT: Ears normal, nares patent, oropharynx clear without exudates. Moist mucous membranes. NECK: Normal range of motion, supple without lymphadenopathy, JVD, or masses. LUNGS: Breath sounds equal, clear to auscultation bilaterally. No wheezes, and no crackles. No accessory muscle use. HEART: Regular rate and rhythm, normal S1 and S2 without murmur, rub or gallop. ABDOMEN: Soft, nontender, not distended, normoactive bowel sounds, no guarding, no rebound, no masses. No hepatomegaly or splenomegaly. MUSCULOSKELETAL: Normal range of motion at all joints. No bony deformities or tenderness. No CVA tenderness. UPPER EXTREMITIES: 2+ pulses, warm, well-perfused. No cyanosis. No clubbing. No peripheral edema. LOWER EXTREMITIES: 2+ pulses, warm, well-perfused. No calf tenderness. No peripheral edema. NEUROLOGICAL: Cranial nerves II-XII intact. Normal speech. Normal gait. PSYCHIATRIC: Cooperative. Good eye contact. Appropriate mood and affect. SKIN: Warm, dry, normal turgor, no rashes or lesions noted, normal capillary refill. Vital Signs - 24 hr 07/17/19 07/18/19 07/18/19 21:00 00:00 01:00 Temperature 99.2 F 99.4 F 99.6 F Pulse Rate 111 H 105 H 105 H Respiratory 18 19 18 Rate Blood Pressure 118/49 L 100/49 L 96/43 L O2 Sat by Pulse 95 95 95 Oximetry (%) 07/18/19 07/18/19 07/18/19 05:00 07:08 08:42 Temperature 99.4 F Pulse Rate 105 H Respiratory 17 Rate Blood Pressure 100/49 L O2 Sat by Pulse 95 95 Oximetry (%) 07/18/19 14:50 Temperature 99.0 F Pulse Rate 102 H Respiratory 19 Rate Blood Pressure 122/56 L O2 Sat by Pulse 96 Oximetry (%) Laboratory Results - last 24 hr 07/17/19 07/18/19 07/18/19 20:37 05:57 06:45 WBC 12.8 H RBC 3.84 Hgb 11.7 Hct 34.8 MCV 90.6 MCH 30.6 MCHC 33.8 RDW 15.0 Plt Count 300 MPV 9.1 Sodium Potassium Chloride Carbon Dioxide Anion Gap BUN Creatinine Est GFR (CKD-EPI)AfAm Est GFR (CKD-EPI)NonAf POC Glucometer 135 136 Random Glucose Calcium Magnesium Total Bilirubin AST ALT Alkaline Phosphatase Total Protein Albumin 07/18/19 07/18/19 07/18/19 06:45 11:44 16:46 WBC RBC Hgb Hct MCV MCH MCHC RDW Plt Count MPV Sodium 138 Potassium 3.8 Chloride 102 Carbon Dioxide 26 Anion Gap 10 BUN 9.0 Creatinine 0.6 Est GFR (CKD-EPI)AfAm 118.09 Est GFR (CKD-EPI)NonAf 101.89 POC Glucometer 124 123 Random Glucose 161 H Calcium 8.6 Magnesium 1.6 L Total Bilirubin 1.0 AST 67 H ALT 41 Alkaline Phosphatase 58 Total Protein 6.7 Albumin 3.1 L Home Medications Medication Instructions Recorded Albuterol Sulfate Inhaler - 1 - 2 inh PO QID PRN 07/03/19 [Ventolin HFA Inhaler -] Amlodipine Besylate 10 mg PO DAILY 07/03/19 Azelastine HCl 137 mcg NS DAILY 07/03/19 Bimatoprost [Lumigan] 1 drop OU HS 07/03/19 Calcium Carbonate [Calcium] 600 mg PO DAILY 07/03/19 Dolutegravir Sodium [Tivicay] 50 mg PO HS 07/03/19 Emtricitabine/Tenofov Alafenam 1 each PO HS 07/03/19 [Descovy 200-25 mg Tablet (Nf)] Ferrous Sulfate 325 mg PO DAILY 07/03/19 Fexofenadine HCl 180 mg PO DAILY 07/03/19 Fluticasone Propionate 16 gm NS BID 07/03/19 Immun Glob G(IgG)-[place]/Maltose 48 ml IV ASDIR 07/03/19 [Cutaquig 16.5% (8 G/48 ml) Vl] Insulin Glargine,Hum.rec.anlog 35 unit SQ HS 07/03/19 [Lantus Solostar] Liraglutide [Victoza -] 1.8 mg SQ DAILY 07/03/19 Lisinopril [Prinivil -] 40 mg PO DAILY 07/03/19 Mometasone/Formoterol [Dulera 200 2 inh IH BID 07/03/19 Mcg/5 Mcg Inhaler] Montelukast Sodium [Singulair] 10 mg PO HS 07/03/19 Omeprazole 20 mg PO DAILY 07/03/19 Oxycodone HCl 30 mg PO Q6H 07/03/19 Pioglitazone HCl [Actos] 30 mg PO DAILY 07/03/19 Rosuvastatin Calcium [Crestor] 10 mg PO HS 07/03/19 Ursodiol 250 mg PO BID 07/03/19 Valacyclovir HCl [Valtrex] 1,000 mg PO DAILY 07/03/19 metFORMIN HCL [Metformin HCl] 850 mg PO BID 07/03/19 Acetaminophen [Tylenol .Regular 650 mg PO Q6H tablet 07/17/19 Strength -] Albuterol 0.083% Nebulizer Maria Guadalupe 1 amp NEB Q4H PRN amp 07/17/19 [Ventolin 0.083% Nebulizer Soln -] Aspirin [ASA -] 81 mg PO BID #60 tab.chew 07/17/19 Budesonide/Formeterol Fumarate 2 puff IH BID inhaler 07/17/19 [SYMBICORT 160/4.5mcg -] Magnesium Hydrox 2400MG/30Ml [Milk 30 ml PO PRN PRN cup 07/17/19 of Magnesia -] Pantoprazole Sodium [Protonix -] 40 mg PO DAILY tablet.ec 07/17/19 Polyethylene Glycol 3350 [Miralax 17 gm PO DAILY #1 bottle 07/17/19 119 gm Btl -] Sennosides/Docusate Sodium 2 tablet PO BID #120 tablet 07/17/19 [Pericolace -] Current Medications Generic Name Dose Route Start Last Admin Trade Name Freq PRN Reason Stop Dose Admin Acetaminophen 650 mg 07/16/19 09:45 07/18/19 16:43 Tylenol - PO 07/19/19 09:44 650 mg Q6H TRINIDAD Administration Al Hydroxide/Mg Hydroxide 30 ml 07/16/19 10:42 Mylanta Oral Suspension - PO Q4H PRN DYSPEPSIA Albuterol Sulfate 1 amp 07/16/19 16:17 Ventolin 0.083% Nebulizer Soln - NEB Q4H PRN SHORT OF BREATH/WHEEZING Albuterol/Ipratropium 1 amp 07/16/19 20:00 07/18/19 09:42 Duoneb - NEB 1 amp RTID TRINIDAD Administration Aspirin 81 mg 07/16/19 22:00 07/18/19 09:39 Asa - PO 81 mg BID TRINIDAD Administration Budesonide/Formoterol Fumarate 2 puff 07/16/19 22:00 07/18/19 09:43 Symbicort 160/4.5mcg - IH 2 sprays BID TRINIDAD Administration Calcium Carbonate 500 mg 07/17/19 10:00 07/18/19 09:40 Os-Greg 500mg - PO 500 mg DAILY TRINIDAD Administration Ferrous Sulfate 325 mg 07/17/19 10:00 07/18/19 09:38 Feosol - PO 325 mg DAILY TRINIDAD Administration Fluticasone Propionate 1 spray 07/16/19 22:00 07/18/19 09:42 Flonase - NS 1 spray BID [facility] Administration Insulin Detemir 35 units 07/16/19 22:00 07/17/19 22:24 Levemir Vial SQ 30 units HS [facility] Administration Latanoprost 1 drop 07/16/19 22:00 07/17/19 22:24 Xalatan 0.005% Eye Drops - OU 1 drp HS [facility] Administration Lisinopril 40 mg 07/17/19 10:00 07/18/19 09:39 Prinivil PO 40 mg DAILY TRINIDAD Administration Magnesium Hydroxide 30 ml 07/16/19 10:42 Milk Of Magnesia - PO PRN PRN CONSTIPATION Montelukast Sodium 10 mg 07/16/19 22:00 07/17/19 21:17 Singulair - PO 10 mg HS [facility] Administration Non-Formulary Medication 250 mg 07/16/19 22:00 Ursodiol [Ursodiol] PO BID TRINIDAD Ondansetron HCl 4 mg 07/16/19 09:31 Zofran Injection IVPUSH Q6H PRN NAUSEA AND/OR VOMITING Ondansetron HCl 4 mg 07/16/19 10:42 07/16/19 11:53 Zofran Injection IVPUSH 4 mg Q6H PRN Administration NAUSEA Oxycodone HCl 5 mg 07/16/19 09:31 Roxicodone - PO Q3H PRN PAIN LEVEL 1-5 Oxycodone HCl 10 mg 07/16/19 09:31 07/18/19 08:06 Roxicodone - PO 10 mg Q3H PRN Administration PAIN LEVEL 6-10 Oxycodone HCl 10 mg 07/17/19 10:00 07/18/19 09:39 Oxycontin - PO 10 mg BID TRINIDAD Administration Pantoprazole Sodium 40 mg 07/17/19 10:00 07/18/19 09:40 Protonix - PO 40 mg DAILY TRINIDAD Administration Polyethylene Glycol 17 gm 07/17/19 10:00 07/18/19 09:42 Miralax (For Daily Use) - PO 17 grams DAILY TRINIDAD Administration Promethazine HCl 12.5 mg 07/16/19 09:31 Phenergan Injection - IVPUSH Q6H PRN NAUSEA-FOR RESCUE AFTER 15 MIN Rosuvastatin Calcium 10 mg 07/16/19 22:00 07/17/19 21:17 Crestor - PO 10 mg HS TRINIDAD Administration Senna/Docusate Sodium 2 tablet 07/16/19 22:00 07/18/19 09:39 Pericolace - PO 2 tablet BID TRINIDAD Administration Simethicone 80 mg 07/18/19 10:35 Mylicon - PO Q4H PRN GAS Valacyclovir HCl 1,000 mg 07/17/19 10:00 07/18/19 09:40 Valtrex - PO 1,000 mg DAILY TRINIDAD Administration A/P: 54 F h/o HTN, HLD, Type II IDDM, HIV AIDS, CVID, granulomatous lung disease, recurrent HSV, Grimes's syndrome, asthma, RICCARDO on CPAP, GERD, and right hip DJD s/p right total hip arthroplasty with Dr. Ishmael Horn on 07/16/2019. Right total hip arthrooplasty POD #3, pain controlled currently undergoing PT, scheduled for DC to rehab tomorrow Ortho cs: Dr Horn Hypertension Hold [facility] in view of low trending systolic BPs monitor VS Hyperlipidemia cont. statin Type II IDDM cont. insulin regimen, ISS PRN HIV AIDS (10/28/08) cont. 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 Valacyclovir GERD PPI RICCARDO on CPAP 11cm H2O CFlex+1 SIMPLUS FF cont. CPAP QHS DVT prophylaxis: OOB, ambulation, SCDs, TEDs, ASA 81mg BID Physical therapy Dispo: DC tomorrow to SNF Visit type - Emergency Visit Emergency Visit: Yes ED Registration Date: 07/16/19 Care time: The patient presented to the Emergency Department on the above date and was hospitalized for further evaluation of their emergent condition. - New Patient This patient is new to me today: Yes Date on this admission: 07/18/19 - Critical Care Critical Care patient: No - Discharge Referral Referred to [facility] Med P.C.: No
[2019-07-18] MEDS: MONTELUKAST NA 10 MG TABLET PO SCH (22:19)
[2019-07-18] MEDS: ROSUVASTATIN CA 10 MG TABLET (FP) PO SCH (22:19)
[2019-07-18] MEDS: EMTRICITABINE/TENOFOV ALAFENAM (DESCOVY) TABLET PO SCH (22:20)
[2019-07-18] MEDS: INSULIN (LEVEMIR) 100 UNITS/ML UNITS SQ SCH (22:21)
[2019-07-18] MEDS: DOLUTEGRAVIR SODIUM 50 MG TABLET (NON-FORMULARY) PO SCH (22:22)
[2019-07-18] MEDS: LATANOPROST 0.005% OPHTH SOLN 2.5ML BOTTLE OU SCH (22:22)
[2019-07-19] MEDS: ACETAMINOPHEN 325 MG TABLET (FP) PO SCH (03:30)
[2019-07-19] MEDS: ALBUTEROL SO4 2.5/IPRATROPIUM 0.5 INH SOL 3 ML VIAL.NEB. NEB SCH ×2 (07:09→08:01)
[2019-07-19 08:59] LABS: ALBUMIN 2.5 g/dl (3.4-5.0); BILIRUBIN,TOTAL 1.1 mg/dl (0.2-1); CALCIUM 8.2 mg/dl (8.5-10); CREATININE 0.5 mg/dl (0.55-1.3); MAGNESIUM 1.6 mg/dL (1.8-2.4); POTASSIUM 3.7 mmol/L (3.5-5.1); TOT PROT 5.9 g/dl (6.4-8.2)
[2019-07-19] MEDS: SENNOSIDES/DOCUSATE COMBO (SENNA PLUS) TABLET (UD) PO SCH (09:45)
[2019-07-19] MEDS: PANTOPRAZOLE 40 MG TABLET PO SCH (09:45)
[2019-07-19] MEDS: oxyCODONE HCL 10 MG SUSTAINED ACTING TABLET PO SCH (09:45)
[2019-07-19] MEDS: ASPIRIN 81 MG CHEWABLE TABLETS PO SCH (09:46)
[2019-07-19] MEDS: FERROUS SO4 325 MG TABLET (FP) PO SCH (09:46)
[2019-07-19] MEDS: valACYclovir HCL 500 MG TABLET (FP) PO SCH (09:46)
[2019-07-19] MEDS: CALCIUM (OYSTER SHELL) 500 MG TABLET (FP) PO SCH (09:46)
[2019-07-19] MEDS: LISINOPRIL 20 MG TABLET (FP) PO SCH (09:46)
[2019-07-19] MEDS: FLUTICASONE PROP 0.05% 16 GM NASAL SPRAY NS SCH (09:47)
[2019-07-19] MEDS: POLYETHYLENE GLYCOL 3350 119 GM BTL PO SCH (09:48)
[2019-07-19] MEDS: BUDESONIDE/FORMETEROL FUMARATE 160/4.5 mcg INHALER IH SCH (09:48)
[2019-07-19 09:51] VITALS: BP 121/53; PULSE 94; TEMP 98.2
== END 2019-07-19 13:11 | DRG 470 ==
LOC: FM/S 05:54
PROVIDERS: ADMIT Orthopaedic Surgery Orthopaedic Surgery of the Spine; ATTEND Internal Medicine
PROC: 0SR90JA Replacement of Right Hip Joint with Synthetic Substitute, Uncemented, Open Approach (ICD-10-PCS; principal; 2019-07-16 09:53)
DX: M16.11 Unilateral primary osteoarthritis, right hip (principal); B20 Human immunodeficiency virus [HIV] disease; E24.9 Cushing's syndrome, unspecified; G47.33 Obstructive sleep apnea (adult) (pediatric); K21.9 Gastro-esophageal reflux disease without esophagitis; E11.9 Type 2 diabetes mellitus without complications; I10 Essential (primary) hypertension; E78.5 Hyperlipidemia, unspecified; J84.10 Pulmonary fibrosis, unspecified; B00.9 Herpesviral infection, unspecified; Z87.891 Personal history of nicotine dependence; Z79.84 Long term (current) use of oral hypoglycemic drugs
CPT/HCPCS: 36415; 73502-TC-RT-FY; 80048; 80053; 82962; 83735; 85025; 85027; 88305-TC; 88311-TC; 94640; 94760; 97116-GP; 97163-GP

== ENCOUNTER 2020-11-11 17:34 | Inpatient (IN) | payer OTHER ==
[2020-11-11] MEDS ORDERED: CEFEPIME HCL/D5W 2 GM/50 ML BAG IVPB ONE (18:44)
[2020-11-11] MEDS ORDERED: VANCOMYCIN/WATER BAGS 1,250 MG/250 ML BAG IVPB ONE (18:44)
[2020-11-11] MEDS ORDERED: ACETAMINOPHEN 1000 MG/100 ML VIAL (NON FORMULARY) IVPB ONE (18:48)
[2020-11-11] MEDS ORDERED: morphine CARPU-JECT 4 MG/1 ML DISP.SYRIN IVPUSH ONE (18:48)
[2020-11-11] MEDS ORDERED: ACETAMINOPHEN INJECTION 100 ML IVPB ONE (18:54)
[2020-11-11] MEDS ORDERED: morphine SULFATE 4 MG/ML VIAL ONE (18:54)
[2020-11-11] MEDS ORDERED: CEFEPIME 2 GM/100 ML BAG IVPB ONE (19:36)
[2020-11-11 19:37] LABS: BASO % 0.6 % (0-2.0); EOS % 3.5 % (0-4.5); HEMATOCRIT 37.8 % (32.4-45.2); HEMOGLOBIN 12.4 GM/dL (10.7-15.3); LYMPH % 15.6 % (8-40); MCH 31.3 pg (25.7-33.7); MCHC 32.9 g/dl (32.0-36.0); MEAN CELL VOLUME 95.1 fl (80-96); MEAN PLT VOLUME 8.7 fl (7.5-11.1); MONO % 6.4 % (3.8-10.2); NEUT % 73.9 % (42.8-82.8); PLATELET COUNT 390 10^3/uL (134-434); RBC 3.97 M/mm3 (3.60-5.2); RDW 15.6 % (11.6-15.6); WHITE BLOOD COUNT 12.2 K/mm3 (4.0-10.0)
[2020-11-11 19:53] LABS: INR 1.01 (0.83-1.09); PROTHROMBIN TIME (PATIENT) 12.4 SEC (9.7-13.0)
[2020-11-11 19:56] LABS: ACTIVATED PTT 29.6 SECONDS (25.2-36.5); BLOOD UREA NITROGEN 26.1 mg/dL (7-18); CALCIUM 9.7 mg/dL (8.5-10.1)
[2020-11-11 19:57] LABS: ALBUMIN 3.6 g/dl (3.4-5.0)
[2020-11-11 20:00] LABS: CREATININE 0.7 mg/dL (0.55-1.3)
[2020-11-11 20:01] LABS: BILIRUBIN,TOTAL 0.4 mg/dL (0.2-1); TOT PROT 7.6 g/dl (6.4-8.2)
[2020-11-12] MEDS ORDERED: morphine CARPU-JECT 2 MG/1 ML DISP.SYRIN IVPUSH ONE (01:43)
[2020-11-12] MEDS ORDERED: MORPHINE SULFATE 2 MG/ML VIAL ONE (01:54)
[2020-11-12] MEDS ORDERED: CEFEPIME HCL/D5W 2 GM/50 ML BAG IVPB SCH (03:00)
[2020-11-12] MEDS: CEFEPIME 2 GM in DEXTROSE 5%-WATER 2 GM/100 ML BAG IVPB SCH ×2 (04:12→09:37)
[2020-11-12] MEDS ORDERED: MORPHINE SULFATE 2 MG/ML VIAL IVPUSH ONE (06:15)
[2020-11-12] MEDS: INSULIN SLIDING SCALE (NOVOLOG) 1 VIAL SQ SCH ×4 (06:15→21:31)
[2020-11-12 08:12] LABS: PH,URINE 5.5 (5.0-8.0); URINE APPEARANCE CLEAR; URINE BILIRUBIN NEGATIVE (NEGATIVE); URINE COLOR YELLOW; URINE GLUCOSE (UA) NEGATIVE (NEGATIVE); URINE KETONE NEGATIVE (NEGATIVE); URINE LEUK ESTERASE NEGATIVE (NEGATIVE); URINE NITRITE NEGATIVE (NEGATIVE); URINE PROTEIN NEGATIVE (NEGATIVE); URINE UROBILINOGEN 0.2 mg/dL (0.2-1.0)
[2020-11-12 09:04] LABS: BASO % 0.5 % (0-2.0); EOS % 3.7 % (0-4.5); HEMATOCRIT 36.1 % (32.4-45.2); HEMOGLOBIN 11.9 GM/dL (10.7-15.3); LYMPH % 15.1 % (8-40); MCH 31.1 pg (25.7-33.7); MCHC 32.9 g/dl (32.0-36.0); MEAN CELL VOLUME 94.7 fl (80-96); MEAN PLT VOLUME 8.6 fl (7.5-11.1); MONO % 6.1 % (3.8-10.2); NEUT % 74.6 % (42.8-82.8); PLATELET COUNT 367 10^3/uL (134-434); RBC 3.81 M/mm3 (3.60-5.2); RDW 15.3 % (11.6-15.6); WHITE BLOOD COUNT 10.4 K/mm3 (4.0-10.0)
[2020-11-12] MEDS ORDERED: PT OWN MED DRAWER 7, Y5N ONE ×4 (09:15→21:23)
[2020-11-12 09:29] LABS: ALBUMIN 3.3 g/dl (3.4-5.0); BLOOD UREA NITROGEN 16.7 mg/dL (7-18)
[2020-11-12 09:31] LABS: CALCIUM 9.3 mg/dL (8.5-10.1)
[2020-11-12 09:32] LABS: MAGNESIUM 1.7 mg/dL (1.8-2.4)
[2020-11-12 09:33] LABS: BILIRUBIN,TOTAL 0.5 mg/dL (0.2-1); CREATININE 0.4 mg/dL (0.55-1.3)
[2020-11-12] MEDS: BUDESONIDE/FORMETEROL FUMARATE 160/4.5 mcg INHALER IH SCH ×2 (09:34→21:30)
[2020-11-12 09:35] LABS: PHOSPHOROUS 3.5 mg/dL (2.5-4.9)
[2020-11-12] MEDS: amLODIPine BESYLATE 10 MG TABLET (FP) PO SCH (09:35)
[2020-11-12] MEDS: valACYclovir HCL 500 MG TABLET (FP) PO SCH (09:37)
[2020-11-12 10:03] LABS: ERYTHROCYTE SEDIMENTATION RATE 88 mm/hr (0-30)
[2020-11-12] MEDS ORDERED: ALBUTEROL SO4 HFA INHALER IH PRN ×2 (10:49→12:46)
[2020-11-12] MEDS ORDERED: oxyCODONE HCL 5 MG TABLET PO PRN (10:58)
[2020-11-12] MEDS ORDERED: INSULIN (NOVOLOG) ASPART 100 UNITS/ML 10ML VIAL ONE (11:55)
[2020-11-12] MEDS: oxyCODONE HCL 5 MG TABLET PO PRN ×2 (13:13→22:24)
[2020-11-12] MEDS: LISINOPRIL 20 MG TABLET PO SCH (13:14)
[2020-11-12] MEDS: OXYBUTYNIN CHLORIDE 5 MG TABLET PO SCH (15:21)
[2020-11-12] MEDS ORDERED: CEFEPIME HCL 1 GM VIAL (RESTRICTED TO ID) ONE (17:08)
[2020-11-12] MEDS ORDERED: DEXTROSE 5%-WATER 100 ML IVPB ONE (17:08)
[2020-11-12] MEDS: CEFEPIME 1 GM in DEXTROSE 5%-WATER 1 GM/100 ML BAG IVPB SCH (17:09)
[2020-11-12] MEDS: VANCOMYCIN/WATER BAGS 1,250 MG/250 ML BAG IVPB SCH (18:03)
[2020-11-12] MEDS ORDERED: VANCOMYCIN/WATER BAGS 1,250 MG/250 ML BAG IVPB SCH ×2 (18:45)
[2020-11-12] MEDS: MONTELUKAST NA 10 MG TABLET PO SCH (21:30)
[2020-11-12] MEDS: MOMETASONE FUROATE 220 MCG/IH INHALER IH SCH (21:30)
[2020-11-12] MEDS: ROSUVASTATIN CA 10 MG TABLET (FP) PO SCH (21:30)
[2020-11-12] MEDS: DOLUTEGRAVIR SODIUM 50 MG TABLET (NON-FORMULARY) PO SCH (21:31)
[2020-11-12] MEDS: EMTRICITABINE/TENOFOV ALAFENAM (DESCOVY) TABLET PO SCH (21:31)
[2020-11-13] MEDS ORDERED: CEFEPIME HCL 1 GM VIAL (RESTRICTED TO ID) ONE ×3 (01:34→16:49)
[2020-11-13] MEDS ORDERED: DEXTROSE 5%-WATER 100 ML IVPB ONE ×3 (01:35→16:49)
[2020-11-13] MEDS: CEFEPIME 1 GM in DEXTROSE 5%-WATER 1 GM/100 ML BAG IVPB SCH ×3 (02:35→17:07)
[2020-11-13] MEDS: INSULIN SLIDING SCALE (NOVOLOG) 1 VIAL SQ SCH ×4 (06:48→21:57)
[2020-11-13] MEDS ORDERED: PT OWN MED DRAWER 7, Y5N ONE ×4 (09:22→21:35)
[2020-11-13] MEDS: LORATADINE 10 MG TABLET PO SCH (09:32)
[2020-11-13] MEDS: FERROUS SO4 325 MG TABLET (FP) PO SCH (09:32)
[2020-11-13] MEDS: LISINOPRIL 20 MG TABLET PO SCH (09:33)
[2020-11-13] MEDS: amLODIPine BESYLATE 10 MG TABLET (FP) PO SCH (09:33)
[2020-11-13] MEDS: OXYBUTYNIN CHLORIDE 5 MG TABLET PO SCH (09:33)
[2020-11-13] MEDS: valACYclovir HCL 500 MG TABLET (FP) PO SCH (09:34)
[2020-11-13] MEDS: BUDESONIDE/FORMETEROL FUMARATE 160/4.5 mcg INHALER IH SCH ×2 (09:35→21:45)
[2020-11-13 10:39] LABS: BASO % 0.7 % (0-2.0); EOS % 3.4 % (0-4.5); HEMATOCRIT 38.2 % (32.4-45.2); HEMOGLOBIN 12.2 GM/dL (10.7-15.3); LYMPH % 15.2 % (8-40); MEAN CELL VOLUME 96.6 fl (80-96); MEAN PLT VOLUME 8.6 fl (7.5-11.1); MONO % 6.4 % (3.8-10.2); NEUT % 74.3 % (42.8-82.8); PLATELET COUNT 380 10^3/uL (134-434); RBC 3.95 M/mm3 (3.60-5.2); WHITE BLOOD COUNT 10.6 K/mm3 (4.0-10.0)
[2020-11-13 11:04] LABS: BLOOD UREA NITROGEN 19.2 mg/dL (7-18)
[2020-11-13 11:07] LABS: ALBUMIN 3.2 g/dl (3.4-5.0); CALCIUM 9.7 mg/dL (8.5-10.1); CREATININE 0.6 mg/dL (0.55-1.3)
[2020-11-13 11:08] LABS: MAGNESIUM 1.8 mg/dL (1.8-2.4)
[2020-11-13 11:14] LABS: BILIRUBIN,TOTAL 0.4 mg/dL (0.2-1)
[2020-11-13] MEDS: oxyCODONE HCL 5 MG TABLET PO PRN ×2 (15:04→23:49)
[2020-11-13] MEDS: VANCOMYCIN/WATER BAGS 1,250 MG/250 ML BAG IVPB SCH (18:28)
[2020-11-13] MEDS: ROSUVASTATIN CA 10 MG TABLET (FP) PO SCH (21:44)
[2020-11-13] MEDS: MONTELUKAST NA 10 MG TABLET PO SCH (21:44)
[2020-11-13] MEDS: MOMETASONE FUROATE 220 MCG/IH INHALER IH SCH (21:44)
[2020-11-13] MEDS: DOLUTEGRAVIR SODIUM 50 MG TABLET (NON-FORMULARY) PO SCH (21:44)
[2020-11-13] MEDS: EMTRICITABINE/TENOFOV ALAFENAM (DESCOVY) TABLET PO SCH (21:44)
[2020-11-14] MEDS ORDERED: PT OWN MED DRAWER 7, Y5N ONE ×3 (02:00→21:19)
[2020-11-14] MEDS ORDERED: CEFEPIME HCL 1 GM VIAL (RESTRICTED TO ID) ONE ×3 (02:01→17:02)
[2020-11-14] MEDS ORDERED: DEXTROSE 5%-WATER 100 ML IVPB ONE ×3 (02:02→17:02)
[2020-11-14] MEDS: CEFEPIME 1 GM in DEXTROSE 5%-WATER 1 GM/100 ML BAG IVPB SCH ×3 (02:14→17:17)
[2020-11-14] MEDS: INSULIN SLIDING SCALE (NOVOLOG) 1 VIAL SQ SCH ×4 (06:23→21:30)
[2020-11-14] MEDS: LORATADINE 10 MG TABLET PO SCH (09:51)
[2020-11-14] MEDS: FERROUS SO4 325 MG TABLET (FP) PO SCH (09:51)
[2020-11-14] MEDS: LISINOPRIL 20 MG TABLET PO SCH (09:51)
[2020-11-14] MEDS: amLODIPine BESYLATE 10 MG TABLET (FP) PO SCH (09:51)
[2020-11-14] MEDS: OXYBUTYNIN CHLORIDE 5 MG TABLET PO SCH (09:52)
[2020-11-14] MEDS: BUDESONIDE/FORMETEROL FUMARATE 160/4.5 mcg INHALER IH SCH ×2 (09:53→21:25)
[2020-11-14] MEDS: valACYclovir HCL 500 MG TABLET (FP) PO SCH (09:53)
[2020-11-14 11:49] LABS: BASO % 0.6 % (0-2.0); EOS % 3.7 % (0-4.5); HEMATOCRIT 39.2 % (32.4-45.2); HEMOGLOBIN 12.6 GM/dL (10.7-15.3); LYMPH % 15.3 % (8-40); MCHC 32.2 g/dl (32.0-36.0); MEAN CELL VOLUME 96.3 fl (80-96); MEAN PLT VOLUME 8.3 fl (7.5-11.1); MONO % 6.9 % (3.8-10.2); NEUT % 73.5 % (42.8-82.8); PLATELET COUNT 408 10^3/uL (134-434); RBC 4.07 M/mm3 (3.60-5.2); RDW 15.3 % (11.6-15.6); WHITE BLOOD COUNT 9.9 K/mm3 (4.0-10.0)
[2020-11-14 12:16] LABS: ALBUMIN 3.3 g/dl (3.4-5.0); CALCIUM 9.3 mg/dL (8.5-10.1)
[2020-11-14 12:17] LABS: BLOOD UREA NITROGEN 20.7 mg/dL (7-18); MAGNESIUM 1.8 mg/dL (1.8-2.4)
[2020-11-14 12:20] LABS: CREATININE 0.5 mg/dL (0.55-1.3); PHOSPHOROUS 2.5 mg/dL (2.5-4.9)
[2020-11-14 12:21] LABS: BILIRUBIN,TOTAL 0.4 mg/dL (0.2-1); TOT PROT 7.3 g/dl (6.4-8.2)
[2020-11-14 12:22] LABS: N-TERMINAL BNP 19.6 pg/ml (5-125)
[2020-11-14] MEDS: VANCOMYCIN/WATER BAGS 1,250 MG/250 ML BAG IVPB SCH (20:21)
[2020-11-14] MEDS: DOLUTEGRAVIR SODIUM 50 MG TABLET (NON-FORMULARY) PO SCH (21:23)
[2020-11-14] MEDS: EMTRICITABINE/TENOFOV ALAFENAM (DESCOVY) TABLET PO SCH (21:23)
[2020-11-14] MEDS: MONTELUKAST NA 10 MG TABLET PO SCH (21:24)
[2020-11-14] MEDS: ROSUVASTATIN CA 10 MG TABLET (FP) PO SCH (21:24)
[2020-11-14] MEDS: MOMETASONE FUROATE 220 MCG/IH INHALER IH SCH (21:26)
[2020-11-14] MEDS ORDERED: DOCUSATE SODIUM 100 MG CAPSULE (FP) PO SCH (22:00)
[2020-11-15] MEDS ORDERED: CEFEPIME HCL 1 GM VIAL (RESTRICTED TO ID) ONE ×3 (01:07→19:44)
[2020-11-15] MEDS ORDERED: DEXTROSE 5%-WATER 100 ML IVPB ONE ×3 (01:07→19:44)
[2020-11-15] MEDS: CEFEPIME 1 GM in DEXTROSE 5%-WATER 1 GM/100 ML BAG IVPB SCH ×3 (01:34→18:50)
[2020-11-15] MEDS: INSULIN SLIDING SCALE (NOVOLOG) 1 VIAL SQ SCH ×4 (06:00→23:06)
[2020-11-15] MEDS: OXYBUTYNIN CHLORIDE 5 MG TABLET PO SCH (09:09)
[2020-11-15] MEDS: LORATADINE 10 MG TABLET PO SCH (09:09)
[2020-11-15] MEDS: valACYclovir HCL 500 MG TABLET (FP) PO SCH (09:10)
[2020-11-15] MEDS: FERROUS SO4 325 MG TABLET (FP) PO SCH (09:12)
[2020-11-15 09:16] LABS: HEMATOCRIT 38.3 % (32.4-45.2); HEMOGLOBIN 12.5 GM/dL (10.7-15.3); MCH 31.1 pg (25.7-33.7); MCHC 32.6 g/dl (32.0-36.0); MEAN CELL VOLUME 95.6 fl (80-96); MEAN PLT VOLUME 8.2 fl (7.5-11.1); PLATELET COUNT 429 10^3/uL (134-434); RBC 4.01 M/mm3 (3.60-5.2); RDW 15.2 % (11.6-15.6); WHITE BLOOD COUNT 9.1 K/mm3 (4.0-10.0)
[2020-11-15] MEDS: BUDESONIDE/FORMETEROL FUMARATE 160/4.5 mcg INHALER IH SCH ×2 (09:56→22:59)
[2020-11-15] MEDS: amLODIPine BESYLATE 10 MG TABLET (FP) PO SCH (09:57)
[2020-11-15] MEDS: LISINOPRIL 20 MG TABLET PO SCH (09:57)
[2020-11-15 10:28] LABS: BLOOD UREA NITROGEN 19.8 mg/dL (7-18)
[2020-11-15 10:29] LABS: ALBUMIN 3.4 g/dl (3.4-5.0)
[2020-11-15 10:31] LABS: CREATININE 0.6 mg/dL (0.55-1.3)
[2020-11-15 10:33] LABS: TOT PROT 7.3 g/dl (6.4-8.2)
[2020-11-15 11:05] LABS: BILIRUBIN,TOTAL 0.6 mg/dL (0.2-1)
[2020-11-15] MEDS ORDERED: GENTAMICIN SO4 80 MG/2 ML VIAL ONE (14:11)
[2020-11-15] MEDS ORDERED: VANCOMYCIN 1,000 MG VIAL (RESTRICTED TO ID ONLY) ONE ×2 (14:12→18:25)
[2020-11-15] MEDS ORDERED: PROPOFOL 20 ML ONE ×6 (14:38→18:35)
[2020-11-15] MEDS ORDERED: MIDAZOLAM HCL 2 MG/2 ML SINGLE DOSE VIAL ONE ×4 (14:39→16:59)
[2020-11-15] MEDS ORDERED: BUPIVACAINE HCL/PF 0.5% (5MG/ML) 10 ML VIAL ONE (14:41)
[2020-11-15] MEDS ORDERED: methylPREDNISolone NA SUCC 125 MG/2 ML VIAL ONE (14:43)
[2020-11-15] MEDS ORDERED: BENZOIN/ALOE VERA/STORAX/TOLU 58 ML BOTTLE ONE (15:05)
[2020-11-15] MEDS ORDERED: TRANEXAMIC ACID 1000 MG/10 ML VIAL ONE ×2 (15:47→18:15)
[2020-11-15] MEDS ORDERED: PIPERACILLIN/TAZOBACTAM 4.5 GM VIAL IVPB ONE ×2 (15:47→16:20)
[2020-11-15] MEDS ORDERED: PT OWN MED DRAWER 7, Y5N ONE (18:10)
[2020-11-15] MEDS ORDERED: ceFAZolin SODIUM 1 GM VIAL IVPB ONE (18:15)
[2020-11-15] MEDS ORDERED: ceFAZolin SODIUM 1 GM VIAL ONE (18:15)
[2020-11-15] MEDS: VANCOMYCIN/WATER BAGS 1,250 MG/250 ML BAG IVPB SCH (18:51)
[2020-11-15] MEDS ORDERED: ONDANSETRON 4 MG/2 ML VIAL IVPUSH PRN ×2 (18:53→19:23)
[2020-11-15] MEDS ORDERED: HYDROmorphone HCl 2 MG/ML VIAL ONE ×2 (18:56→19:23)
[2020-11-15] MEDS ORDERED: HYDROmorphone *PCA* 10MG/50ML DISP.SYRIN PCA SCH ×2 (19:00→20:22)
[2020-11-15] MEDS ORDERED: LACTATED RINGERS SOLUTION 1,000 ML IV SCH ×2 (19:00→19:30)
[2020-11-15] MEDS ORDERED: MAG HYDROX/AL HYDROX/SIMETH 30 ML UNIT-DOSE CUP PO PRN (19:23)
[2020-11-15] MEDS ORDERED: MAGNESIUM HYDROX 2400MG/30ML ORAL SUSPENSION 30 ML CUP PO PRN (19:23)
[2020-11-15] MEDS ORDERED: oxyCODONE HCL 5 MG TABLET PO PRN (19:25)
[2020-11-15] MEDS: LACTATED RINGERS SOLUTION 1,000 ML IV SCH (19:35)
[2020-11-15] MEDS ORDERED: HYDROmorphone *PCA* 10MG/50ML DISP.SYRIN ONE (20:09)
[2020-11-15] MEDS ORDERED: ALBUTEROL SO4 HFA INHALER IH PRN ×2 (20:22)
[2020-11-15] MEDS: MOMETASONE FUROATE 220 MCG/IH INHALER IH SCH (22:54)
[2020-11-15] MEDS: EMTRICITABINE/TENOFOV ALAFENAM (DESCOVY) TABLET PO SCH (22:56)
[2020-11-15] MEDS: MONTELUKAST NA 10 MG TABLET PO SCH (22:57)
[2020-11-15] MEDS: ASPIRIN COATED 81 MG TABLET.EC PO SCH (22:57)
[2020-11-15] MEDS: ROSUVASTATIN CA 10 MG TABLET (FP) PO SCH (22:57)
[2020-11-15] MEDS: DOCUSATE SODIUM 100 MG CAPSULE (FP) PO SCH (22:58)
[2020-11-15] MEDS: DOLUTEGRAVIR SODIUM 50 MG TABLET (NON-FORMULARY) PO SCH (22:59)
[2020-11-16] MEDS: SENNOSIDES/DOCUSATE COMBO (SENNA PLUS) TABLET (UD) PO SCH ×3 (00:56→21:41)
[2020-11-16] MEDS: CELECOXIB 200 MG CAPSULE PO SCH ×3 (00:56→21:37)
[2020-11-16] MEDS: CEFEPIME 1 GM in DEXTROSE 5%-WATER 1 GM/100 ML BAG IVPB SCH ×4 (01:49→17:44)
[2020-11-16] MEDS: VANCOMYCIN/WATER BAGS 1,250 MG/250 ML BAG IVPB SCH (02:53)
[2020-11-16] MEDS: LACTATED RINGERS SOLUTION 1,000 ML IV SCH ×2 (05:06→13:46)
[2020-11-16] MEDS: INSULIN SLIDING SCALE (NOVOLOG) 1 VIAL SQ SCH ×3 (06:11→17:42)
[2020-11-16 09:02] LABS: HEMATOCRIT 31.9 % (32.4-45.2); HEMOGLOBIN 10.2 GM/dL (10.7-15.3); MCH 30.7 pg (25.7-33.7); MCHC 32.1 g/dl (32.0-36.0); MEAN CELL VOLUME 95.8 fl (80-96); MEAN PLT VOLUME 8.4 fl (7.5-11.1); PLATELET COUNT 410 10^3/uL (134-434); RBC 3.33 M/mm3 (3.60-5.2)
[2020-11-16] MEDS ORDERED: LISINOPRIL 20 MG TABLET PO SCH (10:00)
[2020-11-16 10:35] LABS: CALCIUM 8.6 mg/dL (8.5-10.1)
[2020-11-16 10:38] LABS: CREATININE 0.6 mg/dL (0.55-1.3)
[2020-11-16] MEDS ORDERED: PT OWN MED DRAWER 7, Y5N ONE ×3 (10:38→23:29)
[2020-11-16] MEDS ORDERED: CEFEPIME HCL 1 GM VIAL (RESTRICTED TO ID) ONE ×2 (10:38→17:37)
[2020-11-16] MEDS ORDERED: DEXTROSE 5%-WATER 100 ML IVPB ONE ×2 (10:38→17:37)
[2020-11-16 10:39] LABS: PHOSPHOROUS 3.8 mg/dL (2.5-4.9)
[2020-11-16 10:40] LABS: MAGNESIUM 1.7 mg/dL (1.8-2.4)
[2020-11-16] MEDS: FERROUS SO4 325 MG TABLET (FP) PO SCH (11:06)
[2020-11-16] MEDS: PANTOPRAZOLE 40 MG TABLET PO SCH (11:06)
[2020-11-16] MEDS: LORATADINE 10 MG TABLET PO SCH (11:07)
[2020-11-16] MEDS: ASPIRIN COATED 81 MG TABLET.EC PO SCH ×2 (11:07→21:40)
[2020-11-16] MEDS: amLODIPine BESYLATE 10 MG TABLET (FP) PO SCH (11:07)
[2020-11-16] MEDS: OXYBUTYNIN CHLORIDE 5 MG TABLET PO SCH (11:08)
[2020-11-16] MEDS: valACYclovir HCL 500 MG TABLET (FP) PO SCH (11:09)
[2020-11-16] MEDS: BUDESONIDE/FORMETEROL FUMARATE 160/4.5 mcg INHALER IH SCH ×2 (11:10→21:48)
[2020-11-16] MEDS ORDERED: VANCOMYCIN PREMIX 1.5 GM 1,500 MG/300 ML BAG IVPB ONE (17:00)
[2020-11-16] MEDS ORDERED: VANCOMYCIN/WATER BAGS 1,250 MG/250 ML BAG IVPB SCH (19:00)
[2020-11-16] MEDS ORDERED: PCA PUMP NR ONE (20:02)
[2020-11-16] MEDS: DOCUSATE SODIUM 100 MG CAPSULE (FP) PO SCH (21:34)
[2020-11-16] MEDS: oxyCODONE HCL 5 MG TABLET PO PRN (21:35)
[2020-11-16] MEDS: ROSUVASTATIN CA 10 MG TABLET (FP) PO SCH (21:36)
[2020-11-16] MEDS: MOMETASONE FUROATE 220 MCG/IH INHALER IH SCH (21:36)
[2020-11-16] MEDS: MONTELUKAST NA 10 MG TABLET PO SCH (21:36)
[2020-11-16] MEDS: INSULIN (LEVEMIR) 100 UNITS/ML UNITS SQ SCH (21:47)
[2020-11-16] MEDS: DOLUTEGRAVIR SODIUM 50 MG TABLET (NON-FORMULARY) PO SCH (23:03)
[2020-11-16] MEDS: EMTRICITABINE/TENOFOV ALAFENAM (DESCOVY) TABLET PO SCH (23:03)
[2020-11-17] MEDS ORDERED: CEFEPIME HCL 1 GM VIAL (RESTRICTED TO ID) ONE ×3 (02:00→17:13)
[2020-11-17] MEDS ORDERED: DEXTROSE 5%-WATER 100 ML IVPB ONE ×3 (02:00→17:14)
[2020-11-17] MEDS: CEFEPIME 1 GM in DEXTROSE 5%-WATER 1 GM/100 ML BAG IVPB SCH ×3 (02:22→17:27)
[2020-11-17] MEDS: oxyCODONE HCL 5 MG TABLET PO PRN ×4 (02:22→22:03)
[2020-11-17] MEDS: INSULIN SLIDING SCALE (NOVOLOG) 1 VIAL SQ SCH ×3 (06:19→17:21)
[2020-11-17] MEDS: INSULIN (LEVEMIR) 100 UNITS/ML UNITS SQ SCH ×2 (06:20→22:08)
[2020-11-17 09:15] LABS: BASO % 0.4 % (0-2.0); EOS % 2.6 % (0-4.5); HEMATOCRIT 29.5 % (32.4-45.2); HEMOGLOBIN 9.6 GM/dL (10.7-15.3); MCH 31.6 pg (25.7-33.7); MCHC 32.6 g/dl (32.0-36.0); MEAN CELL VOLUME 96.7 fl (80-96); MEAN PLT VOLUME 8.4 fl (7.5-11.1); MONO % 9.3 % (3.8-10.2); NEUT % 71.7 % (42.8-82.8); PLATELET COUNT 364 10^3/uL (134-434); RBC 3.05 M/mm3 (3.60-5.2); RDW 14.8 % (11.6-15.6); WHITE BLOOD COUNT 12.7 K/mm3 (4.0-10.0)
[2020-11-17 09:54] LABS: ALBUMIN 2.8 g/dl (3.4-5.0); CALCIUM 8.9 mg/dL (8.5-10.1)
[2020-11-17 09:55] LABS: BLOOD UREA NITROGEN 14.3 mg/dL (7-18); MAGNESIUM 1.7 mg/dL (1.8-2.4)
[2020-11-17 09:57] LABS: CREATININE 0.5 mg/dL (0.55-1.3)
[2020-11-17 09:58] LABS: PHOSPHOROUS 2.6 mg/dL (2.5-4.9)
[2020-11-17 09:59] LABS: TOT PROT 5.9 g/dl (6.4-8.2)
[2020-11-17 10:15] LABS: BILIRUBIN,TOTAL 0.4 mg/dL (0.2-1)
[2020-11-17] MEDS: ACETAMINOPHEN 1000 MG/100 ML VIAL (NON FORMULARY) IVPB PRN ×2 (11:57→18:30)
[2020-11-17] MEDS: PANTOPRAZOLE 40 MG TABLET PO SCH (11:58)
[2020-11-17] MEDS: amLODIPine BESYLATE 10 MG TABLET (FP) PO SCH (11:58)
[2020-11-17] MEDS: LISINOPRIL 20 MG TABLET PO SCH (11:58)
[2020-11-17] MEDS: LORATADINE 10 MG TABLET PO SCH (11:58)
[2020-11-17] MEDS: ASPIRIN COATED 81 MG TABLET.EC PO SCH ×2 (11:59→22:05)
[2020-11-17] MEDS: BUDESONIDE/FORMETEROL FUMARATE 160/4.5 mcg INHALER IH SCH ×2 (11:59→22:03)
[2020-11-17] MEDS: FERROUS SO4 325 MG TABLET (FP) PO SCH (11:59)
[2020-11-17] MEDS ORDERED: PT OWN MED DRAWER 7, Y5N ONE ×3 (16:24→22:37)
[2020-11-17] MEDS: CELECOXIB 200 MG CAPSULE PO SCH ×2 (17:11→22:06)
[2020-11-17] MEDS: SENNOSIDES/DOCUSATE COMBO (SENNA PLUS) TABLET (UD) PO SCH ×2 (17:12→22:07)
[2020-11-17] MEDS: OXYBUTYNIN CHLORIDE 5 MG TABLET PO SCH (17:12)
[2020-11-17] MEDS: valACYclovir HCL 500 MG TABLET (FP) PO SCH (17:12)
[2020-11-17] MEDS ORDERED: VANCOMYCIN PREMIX 1.5 GM 1,500 MG/300 ML BAG IVPB ONE (18:00)
[2020-11-17] MEDS: MOMETASONE FUROATE 220 MCG/IH INHALER IH SCH (22:03)
[2020-11-17] MEDS: MONTELUKAST NA 10 MG TABLET PO SCH (22:04)
[2020-11-17] MEDS: DOCUSATE SODIUM 100 MG CAPSULE (FP) PO SCH (22:05)
[2020-11-17] MEDS: ROSUVASTATIN CA 10 MG TABLET (FP) PO SCH (22:05)
[2020-11-17] MEDS: DOLUTEGRAVIR SODIUM 50 MG TABLET (NON-FORMULARY) PO SCH (22:06)
[2020-11-17] MEDS: EMTRICITABINE/TENOFOV ALAFENAM (DESCOVY) TABLET PO SCH (22:06)
[2020-11-18] MEDS ORDERED: CEFEPIME HCL 1 GM VIAL (RESTRICTED TO ID) ONE ×3 (01:34→16:47)
[2020-11-18] MEDS ORDERED: DEXTROSE 5%-WATER 100 ML IVPB ONE ×3 (01:34→16:48)
[2020-11-18] MEDS: CEFEPIME 1 GM in DEXTROSE 5%-WATER 1 GM/100 ML BAG IVPB SCH ×3 (01:42→17:16)
[2020-11-18] MEDS: INSULIN SLIDING SCALE (NOVOLOG) 1 VIAL SQ SCH ×4 (06:29→21:31)
[2020-11-18] MEDS: INSULIN (LEVEMIR) 100 UNITS/ML UNITS SQ SCH ×2 (06:31→21:33)
[2020-11-18] MEDS: oxyCODONE HCL 5 MG TABLET PO PRN ×4 (06:32→21:48)
[2020-11-18 08:58] LABS: BASO % 0.5 % (0-2.0); EOS % 2.7 % (0-4.5); HEMATOCRIT 28.6 % (32.4-45.2); HEMOGLOBIN 9.3 GM/dL (10.7-15.3); LYMPH % 16.1 % (8-40); MCH 31.5 pg (25.7-33.7); MCHC 32.6 g/dl (32.0-36.0); MEAN CELL VOLUME 96.4 fl (80-96); MONO % 8.4 % (3.8-10.2); NEUT % 72.3 % (42.8-82.8); PLATELET COUNT 351 10^3/uL (134-434); RBC 2.97 M/mm3 (3.60-5.2); RDW 15.4 % (11.6-15.6)
[2020-11-18 09:28] LABS: ALBUMIN 2.6 g/dl (3.4-5.0)
[2020-11-18 09:31] LABS: CREATININE 0.5 mg/dL (0.55-1.3); PHOSPHOROUS 3.4 mg/dL (2.5-4.9); TOT PROT 5.8 g/dl (6.4-8.2)
[2020-11-18 09:33] LABS: BILIRUBIN,TOTAL 0.4 mg/dL (0.2-1)
[2020-11-18] MEDS: LISINOPRIL 20 MG TABLET PO SCH (11:01)
[2020-11-18] MEDS: FERROUS SO4 325 MG TABLET (FP) PO SCH (11:01)
[2020-11-18] MEDS: LORATADINE 10 MG TABLET PO SCH (11:01)
[2020-11-18] MEDS: PANTOPRAZOLE 40 MG TABLET PO SCH (11:01)
[2020-11-18] MEDS: SENNOSIDES/DOCUSATE COMBO (SENNA PLUS) TABLET (UD) PO SCH ×2 (11:01→21:21)
[2020-11-18] MEDS: valACYclovir HCL 500 MG TABLET (FP) PO SCH (11:02)
[2020-11-18] MEDS: OXYBUTYNIN CHLORIDE 5 MG TABLET PO SCH (11:02)
[2020-11-18] MEDS: ASPIRIN COATED 81 MG TABLET.EC PO SCH ×2 (11:02→21:19)
[2020-11-18] MEDS: BUDESONIDE/FORMETEROL FUMARATE 160/4.5 mcg INHALER IH SCH ×2 (11:03→21:21)
[2020-11-18] MEDS: CELECOXIB 200 MG CAPSULE PO SCH ×2 (11:03→21:20)
[2020-11-18 14:18] VITALS: BMI 36.3
[2020-11-18] MEDS ORDERED: PCA PUMP NR ONE (16:38)
[2020-11-18] MEDS ORDERED: PT OWN MED DRAWER 7, Y5N ONE ×2 (20:55→21:11)
[2020-11-18] MEDS: MOMETASONE FUROATE 220 MCG/IH INHALER IH SCH (21:17)
[2020-11-18] MEDS: ROSUVASTATIN CA 10 MG TABLET (FP) PO SCH (21:19)
[2020-11-18] MEDS: DOCUSATE SODIUM 100 MG CAPSULE (FP) PO SCH (21:19)
[2020-11-18] MEDS: EMTRICITABINE/TENOFOV ALAFENAM (DESCOVY) TABLET PO SCH (21:20)
[2020-11-18] MEDS: MONTELUKAST NA 10 MG TABLET PO SCH (21:20)
[2020-11-18] MEDS: DOLUTEGRAVIR SODIUM 50 MG TABLET (NON-FORMULARY) PO SCH (21:21)
[2020-11-18] MEDS: VANCOMYCIN PREMIX 1.5 GM 1,500 MG/300 ML BAG IVPB SCH (22:10)
[2020-11-19] MEDS ORDERED: CEFEPIME HCL 1 GM VIAL (RESTRICTED TO ID) ONE ×3 (02:50→17:55)
[2020-11-19] MEDS ORDERED: DEXTROSE 5%-WATER 100 ML IVPB ONE ×3 (02:50→17:55)
[2020-11-19] MEDS: CEFEPIME 1 GM in DEXTROSE 5%-WATER 1 GM/100 ML BAG IVPB SCH ×3 (02:52→18:06)
[2020-11-19] MEDS: oxyCODONE HCL 5 MG TABLET PO PRN ×4 (05:18→22:51)
[2020-11-19] MEDS: INSULIN SLIDING SCALE (NOVOLOG) 1 VIAL SQ SCH ×4 (06:12→21:27)
[2020-11-19] MEDS: INSULIN (LEVEMIR) 100 UNITS/ML UNITS SQ SCH ×2 (06:13→21:26)
[2020-11-19] MEDS ORDERED: PT OWN MED DRAWER 7, Y5N ONE (09:33)
[2020-11-19 10:46] LABS: HEMATOCRIT 30.1 % (32.4-45.2); MCH 31.6 pg (25.7-33.7); MCHC 33.1 g/dl (32.0-36.0); MEAN CELL VOLUME 95.4 fl (80-96); MEAN PLT VOLUME 7.9 fl (7.5-11.1); PLATELET COUNT 417 10^3/uL (134-434); RBC 3.16 M/mm3 (3.60-5.2); RDW 14.8 % (11.6-15.6); WHITE BLOOD COUNT 12.3 K/mm3 (4.0-10.0)
[2020-11-19 11:08] LABS: CALCIUM 8.9 mg/dL (8.5-10.1)
[2020-11-19 11:10] LABS: BLOOD UREA NITROGEN 15.1 mg/dL (7-18); MAGNESIUM 1.8 mg/dL (1.8-2.4)
[2020-11-19 11:13] LABS: PHOSPHOROUS 2.2 mg/dL (2.5-4.9)
[2020-11-19 11:19] LABS: CREATININE 0.5 mg/dL (0.55-1.3)
[2020-11-19] MEDS: LISINOPRIL 20 MG TABLET PO SCH (11:51)
[2020-11-19] MEDS: PANTOPRAZOLE 40 MG TABLET PO SCH (11:51)
[2020-11-19] MEDS: LORATADINE 10 MG TABLET PO SCH (11:51)
[2020-11-19] MEDS: ASPIRIN COATED 81 MG TABLET.EC PO SCH ×2 (11:52→21:26)
[2020-11-19] MEDS: SENNOSIDES/DOCUSATE COMBO (SENNA PLUS) TABLET (UD) PO SCH ×2 (11:52→21:25)
[2020-11-19] MEDS: OXYBUTYNIN CHLORIDE 5 MG TABLET PO SCH (11:52)
[2020-11-19] MEDS: FERROUS SO4 325 MG TABLET (FP) PO SCH (11:52)
[2020-11-19] MEDS: valACYclovir HCL 500 MG TABLET (FP) PO SCH (11:53)
[2020-11-19] MEDS: CELECOXIB 200 MG CAPSULE PO SCH ×2 (11:53→21:24)
[2020-11-19] MEDS ORDERED: LIDOCAINE 5% TOPICAL PATCH TP ONE (11:54)
[2020-11-19] MEDS ORDERED: MORPHINE SULFATE 2 MG/ML VIAL IVPUSH ONE (11:54)
[2020-11-19] MEDS: BUDESONIDE/FORMETEROL FUMARATE 160/4.5 mcg INHALER IH SCH ×2 (11:54→21:31)
[2020-11-19] MEDS: EMTRICITABINE/TENOFOV ALAFENAM (DESCOVY) TABLET PO SCH (21:24)
[2020-11-19] MEDS: DOLUTEGRAVIR SODIUM 50 MG TABLET (NON-FORMULARY) PO SCH (21:24)
[2020-11-19] MEDS: ROSUVASTATIN CA 10 MG TABLET (FP) PO SCH (21:24)
[2020-11-19] MEDS: DOCUSATE SODIUM 100 MG CAPSULE (FP) PO SCH (21:25)
[2020-11-19] MEDS: MONTELUKAST NA 10 MG TABLET PO SCH (21:25)
[2020-11-19] MEDS: MOMETASONE FUROATE 220 MCG/IH INHALER IH SCH (21:26)
[2020-11-19] MEDS: VANCOMYCIN PREMIX 1.5 GM 1,500 MG/300 ML BAG IVPB SCH (21:28)
[2020-11-19] MEDS ORDERED: LIDOCAINE PATCH REMOVAL MC ONE (22:00)
[2020-11-20] MEDS ORDERED: CEFEPIME HCL 1 GM VIAL (RESTRICTED TO ID) ONE ×3 (02:16→16:53)
[2020-11-20] MEDS ORDERED: DEXTROSE 5%-WATER 100 ML IVPB ONE ×3 (02:16→16:53)
[2020-11-20] MEDS: CEFEPIME 1 GM in DEXTROSE 5%-WATER 1 GM/100 ML BAG IVPB SCH ×3 (02:29→17:11)
[2020-11-20] MEDS: INSULIN SLIDING SCALE (NOVOLOG) 1 VIAL SQ SCH ×4 (06:09→21:07)
[2020-11-20] MEDS: INSULIN (LEVEMIR) 100 UNITS/ML UNITS SQ SCH ×2 (06:10→21:05)
[2020-11-20] MEDS ORDERED: PT OWN MED DRAWER 7, Y5N ONE ×2 (09:37→20:29)
[2020-11-20] MEDS: FERROUS SO4 325 MG TABLET (FP) PO SCH (09:40)
[2020-11-20] MEDS: PANTOPRAZOLE 40 MG TABLET PO SCH (09:40)
[2020-11-20] MEDS: LORATADINE 10 MG TABLET PO SCH (09:41)
[2020-11-20] MEDS: oxyCODONE HCL 5 MG TABLET PO PRN ×2 (09:41→14:41)
[2020-11-20] MEDS: LISINOPRIL 20 MG TABLET PO SCH (09:41)
[2020-11-20] MEDS: SENNOSIDES/DOCUSATE COMBO (SENNA PLUS) TABLET (UD) PO SCH ×2 (09:42→21:05)
[2020-11-20] MEDS: CELECOXIB 200 MG CAPSULE PO SCH ×2 (09:42→21:05)
[2020-11-20] MEDS: valACYclovir HCL 500 MG TABLET (FP) PO SCH (09:42)
[2020-11-20] MEDS: OXYBUTYNIN CHLORIDE 5 MG TABLET PO SCH (09:42)
[2020-11-20] MEDS: BUDESONIDE/FORMETEROL FUMARATE 160/4.5 mcg INHALER IH SCH ×2 (09:43→21:04)
[2020-11-20] MEDS: ASPIRIN COATED 81 MG TABLET.EC PO SCH ×2 (09:43→21:07)
[2020-11-20] MEDS ORDERED: NYSTATIN 500,000 UNITS/5 ML SUSPENSION PO ONE (11:39)
[2020-11-20 11:54] LABS: HEMATOCRIT 30.8 % (32.4-45.2); HEMOGLOBIN 9.9 GM/dL (10.7-15.3); MCH 30.5 pg (25.7-33.7); MEAN CELL VOLUME 95.5 fl (80-96); MEAN PLT VOLUME 7.8 fl (7.5-11.1); PLATELET COUNT 432 10^3/uL (134-434); RBC 3.23 M/mm3 (3.60-5.2); RDW 14.9 % (11.6-15.6); WHITE BLOOD COUNT 11.2 K/mm3 (4.0-10.0)
[2020-11-20 12:16] LABS: BLOOD UREA NITROGEN 15.3 mg/dL (7-18); CALCIUM 9.4 mg/dL (8.5-10.1)
[2020-11-20 12:17] LABS: CREATININE 0.5 mg/dL (0.55-1.3); MAGNESIUM 1.8 mg/dL (1.8-2.4)
[2020-11-20 12:20] LABS: PHOSPHOROUS 3.6 mg/dL (2.5-4.9)
[2020-11-20] MEDS: VANCOMYCIN 1,750 MG in DEXTROSE 5%-WATER - 500 ML IVPB SCH ×2 (18:56→20:26)
[2020-11-20 20:55] VITALS: BP 115/62; PULSE 82; TEMP 99
[2020-11-20] MEDS: MOMETASONE FUROATE 220 MCG/IH INHALER IH SCH (21:04)
[2020-11-20] MEDS: DOCUSATE SODIUM 100 MG CAPSULE (FP) PO SCH (21:04)
[2020-11-20] MEDS: EMTRICITABINE/TENOFOV ALAFENAM (DESCOVY) TABLET PO SCH (21:05)
[2020-11-20] MEDS: DOLUTEGRAVIR SODIUM 50 MG TABLET (NON-FORMULARY) PO SCH (21:05)
[2020-11-20] MEDS: MONTELUKAST NA 10 MG TABLET PO SCH (21:06)
[2020-11-20] MEDS: ROSUVASTATIN CA 10 MG TABLET (FP) PO SCH (21:06)
== END 2020-11-20 23:10 | DRG 467 ==
LOC: JER 17:34 → JERBED 18:45 → J5S 11-12 03:48
PROVIDERS: ADMIT Internal Medicine; ATTEND Internal Medicine
PROC: 0SRB0J9 Replacement of Left Hip Joint with Synthetic Substitute, Cemented, Open Approach (ICD-10-PCS; 2020-11-15)
PROC: 0SPB0JZ Removal of Synthetic Substitute from Left Hip Joint, Open Approach (ICD-10-PCS; principal; 2020-11-15 15:46)
PROC: 02HV33Z Insertion of Infusion Device into Superior Vena Cava, Percutaneous Approach (ICD-10-PCS; 2020-11-19)
PROC: B548ZZA Ultrasonography of Superior Vena Cava, Guidance (ICD-10-PCS; 2020-11-19)
DX: T84.52XA Infection and inflammatory reaction due to internal left hip prosthesis, initial encounter (principal); E24.9 Cushing's syndrome, unspecified; M00.852 Arthritis due to other bacteria, left hip; I10 Essential (primary) hypertension; E78.5 Hyperlipidemia, unspecified; E11.9 Type 2 diabetes mellitus without complications; J45.909 Unspecified asthma, uncomplicated; G47.33 Obstructive sleep apnea (adult) (pediatric); K21.9 Gastro-esophageal reflux disease without esophagitis; Y83.8 Other surgical procedures as the cause of abnormal reaction of the patient, or of later complication, without mention of misadventure at the time of the procedure; J45.50 Severe persistent asthma, uncomplicated; E66.9 Obesity, unspecified; Z68.36 Body mass index [BMI] 36.0-36.9, adult; Z21 Asymptomatic human immunodeficiency virus [HIV] infection status; Z79.4 Long term (current) use of insulin
CPT/HCPCS: 36415; 36569; 71045-TC-FY; 73523-TC-FY; 80048; 80053; 80061; 81003; 82962; 83036; 83721; 83735; 83880; 84100; 84443; 84478; 85025; 85027; 85610; 85651; 85730; 86140; 86359; 86360; 86850; 86900; 86901; 87040; 87070; 87086; 87205; 93005; 93010; 93306-TC; 94010; 94660; 94760; 97116-GP; 97162-GP; 99285-25; C9803; G0480; J0131; U0003; U0005

== ENCOUNTER 2021-01-12 07:23 | Inpatient (IN) | payer OTHER ==
[2021-01-06 12:17] VITALS: BMI 36.6
[2021-01-12] MEDS ORDERED: BENZOIN 118 ML SPRAY.PUMP TP ONE (08:33)
[2021-01-12 09:13] LABS: MONO % 9.1 % (3.8-10.2); WHITE BLOOD COUNT 7.2 K/mm3 (4.0-10.8)
[2021-01-12 09:15] LABS: BASO % 0.3 % (0-2.0); EOS % 2.3 % (0-4.5); HEMATOCRIT 29.7 % (32.4-45.2); HEMOGLOBIN 9.6 GM/dl (10.7-15.3); LYMPH % 18.1 % (8-40); MCH 29.9 pg (25.7-33.7); MCHC 32.5 g/dl (32.0-36.0); MEAN CELL VOLUME 92.1 fl (80-96); MEAN PLT VOLUME 8.5 fl (7.5-11.1); NEUT % 70.2 % (42.8-82.8); PLATELET COUNT 326 10^3/uL (134-434); RBC 3.23 M/mm3 (3.60-5.2); RDW 14.3 % (11.6-15.6)
[2021-01-12] MEDS ORDERED: MIDAZOLAM HCL 2 MG/2 ML SINGLE DOSE VIAL ONE ×3 (10:01→14:50)
[2021-01-12] MEDS ORDERED: BUPIVACAINE HCL/PF 0.5% (5MG/ML) 10 ML VIAL ONE (10:02)
[2021-01-12] MEDS ORDERED: LIDOCAINE HCL/PF 2% SDV 5ML VIAL ONE (10:03)
[2021-01-12] MEDS ORDERED: VANCOMYCIN 1,000 MG VIAL (RESTRICTED TO ID ONLY) ONE (11:18)
[2021-01-12] MEDS ORDERED: methylPREDNISolone NA SUCC 40 MG/1 ML VIAL ONE (11:18)
[2021-01-12] MEDS ORDERED: BUPIVACAINE HCL/PF 2.5 MG/ML - 30 ML VIAL IJ ONE (12:13)
[2021-01-12] MEDS ORDERED: BUPIVACAINE HCL 50 ML ONE (12:14)
[2021-01-12] MEDS ORDERED: ceFAZolin SODIUM 1 GM VIAL ONE (12:22)
[2021-01-12] MEDS ORDERED: ONDANSETRON 4 MG/2 ML VIAL ONE (12:22)
[2021-01-12] MEDS ORDERED: PROPOFOL 20 ML ONE ×2 (12:37)
[2021-01-12] MEDS ORDERED: TRANEXAMIC ACID 1000 MG/10 ML VIAL ONE (12:38)
[2021-01-12] MEDS ORDERED: THROMBIN (BOVINE) 5,000 UNIT VIAL TP ONE (13:30)
[2021-01-12] MEDS ORDERED: PHENYLEPHRINE HCL 10 MG/1 ML SINGLE DOSE VIAL ONE (14:43)
[2021-01-12] MEDS ORDERED: HYDROmorphone HCL/PF 1 MG/ML VIAL ONE ×2 (16:26→17:48)
[2021-01-12] MEDS ORDERED: ALBUTEROL SO4 HFA INHALER IH PRN (16:55)
[2021-01-12] MEDS ORDERED: MAG HYDROX/AL HYDROX/SIMETH 30 ML UNIT-DOSE CUP PO PRN (16:58)
[2021-01-12] MEDS ORDERED: ONDANSETRON 4 MG/2 ML VIAL IVPUSH PRN ×2 (16:58→17:22)
[2021-01-12] MEDS ORDERED: MAGNESIUM HYDROX 2400MG/30ML ORAL SUSPENSION 30 ML CUP PO PRN (16:58)
[2021-01-12] MEDS ORDERED: CEFPODOXIME PROXETIL 200 MG PO SCH (17:00)
[2021-01-12] MEDS ORDERED: DUPILUMAB 300 MG/2 ML SQ SCH (17:00)
[2021-01-12] MEDS ORDERED: LACTATED RINGERS SOLUTION 1,000 ML IV SCH ×2 (17:00→17:30)
[2021-01-12] MEDS ORDERED: [UNRECOGNIZED DRUG - OTHER] SQ SCH (17:00)
[2021-01-12] MEDS ORDERED: ACETAMINOPHEN INJECTION 100 ML IVPB ONE (17:17)
[2021-01-12] MEDS ORDERED: ACETAMINOPHEN 1000 MG/100 ML VIAL (NON FORMULARY) IVPB ONE (17:22)
[2021-01-12] MEDS ORDERED: oxyCODONE HCL 5 MG TABLET PO PRN ×3 (17:23→20:25)
[2021-01-12] MEDS: HYDROmorphone HCl 2 MG/ML VIAL IVPUSH PRN ×3 (17:50→18:45)
[2021-01-12] MEDS ORDERED: oxyCODONE HCL 5 MG TABLET ONE (18:47)
[2021-01-12] MEDS: HYDROmorphone HCl 2 MG/ML VIAL IVPB PRN (20:40)
[2021-01-12] MEDS: CEFAZOLIN 2 GM in DEXTROSE 5%-WATER - 100 ML IVPB SCH (20:41)
[2021-01-12] MEDS: ALBUTEROL SO4 0.083% IH SOL 2.5 MG/3 ML VIAL.NEB. NEB SCH (20:41)
[2021-01-12] MEDS: FAMOTIDINE 20 MG TABLET PO SCH (21:04)
[2021-01-12] MEDS: MONTELUKAST NA 10 MG TABLET PO SCH (21:05)
[2021-01-12] MEDS: SENNOSIDES/DOCUSATE COMBO (SENNA PLUS) TABLET (UD) PO SCH (21:05)
[2021-01-12] MEDS: ROSUVASTATIN CA 10 MG TABLET (FP) PO SCH (21:05)
[2021-01-12] MEDS: CELECOXIB 200 MG CAPSULE PO SCH (21:05)
[2021-01-12] MEDS: ASPIRIN 81 MG CHEWABLE TABLETS PO SCH (21:06)
[2021-01-12] MEDS ORDERED: amLODIPine BESYLATE 10 MG TABLET (FP) PO SCH (22:00)
[2021-01-12] MEDS ORDERED: PATIENT'S OWN MEDICATION (NON-FORMULARY) (Fluticasone Propionate [Flovent Hfa] 44 MCG Inha IH SCH (22:00)
[2021-01-12] MEDS: DOLUTEGRAVIR SODIUM 50 MG TABLET (NON-FORMULARY) PO SCH (22:17)
[2021-01-12] MEDS: BUDESONIDE/FORMETEROL FUMARATE 160/4.5 mcg INHALER IH SCH (22:20)
[2021-01-12] MEDS: INSULIN (LEVEMIR) 100 UNITS/ML UNITS SQ SCH (22:21)
[2021-01-12] MEDS: oxyCODONE HCL 5 MG TABLET PO PRN (23:47)
[2021-01-13] MEDS: CEFAZOLIN 2 GM in DEXTROSE 5%-WATER - 100 ML IVPB SCH (02:15)
[2021-01-13] MEDS: oxyCODONE HCL 5 MG TABLET PO PRN ×3 (05:07→15:30)
[2021-01-13] MEDS: PIOGLITAZONE HCL 15 MG TABLET PO SCH (06:00)
[2021-01-13] MEDS ORDERED: LOCK ITEM NR ONE (06:43)
[2021-01-13] MEDS ORDERED: LIRAGLUTIDE 0.6 MG/0.1 ML PEN.INJCTR SQ SCH (07:00)
[2021-01-13] MEDS ORDERED: REFRIGERATED ANITBIOTICS ONE ×2 (07:49→09:26)
[2021-01-13] MEDS ORDERED: CEFAZOLIN 2 GM/D5W 2 GM/50 ML ML IVPB ONE (08:00)
[2021-01-13] MEDS: ALBUTEROL SO4 0.083% IH SOL 2.5 MG/3 ML VIAL.NEB. NEB SCH (08:45)
[2021-01-13] MEDS: valACYclovir HCL 500 MG TABLET (FP) PO SCH (09:35)
[2021-01-13] MEDS: ASPIRIN 81 MG CHEWABLE TABLETS PO SCH ×2 (09:37→22:15)
[2021-01-13] MEDS: DOXYCYCLINE HYCLATE 100 MG CAPSULE PO SCH ×2 (09:37→17:12)
[2021-01-13] MEDS: PANTOPRAZOLE 40 MG TABLET PO SCH (09:38)
[2021-01-13] MEDS: CELECOXIB 200 MG CAPSULE PO SCH ×2 (09:38→22:15)
[2021-01-13] MEDS: EMTRICITABINE/TENOFOV ALAFENAM (DESCOVY) TABLET PO SCH (09:38)
[2021-01-13] MEDS: SENNOSIDES/DOCUSATE COMBO (SENNA PLUS) TABLET (UD) PO SCH ×2 (09:38→22:15)
[2021-01-13] MEDS: BUDESONIDE/FORMETEROL FUMARATE 160/4.5 mcg INHALER IH SCH ×2 (09:38→22:17)
[2021-01-13] MEDS ORDERED: LISINOPRIL 20 MG TABLET PO SCH (10:00)
[2021-01-13] MEDS: HYDROmorphone HCl 2 MG/ML VIAL IVPB PRN ×2 (10:45→22:33)
[2021-01-13 11:18] LABS: HEMATOCRIT 34.7 % (32.4-45.2); HEMOGLOBIN 11.2 GM/dl (10.7-15.3); MCH 29.9 pg (25.7-33.7); MCHC 32.3 g/dl (32.0-36.0); MEAN CELL VOLUME 92.4 fl (80-96); MEAN PLT VOLUME 8.7 fl (7.5-11.1); PLATELET COUNT 225 10^3/uL (134-434); RBC 3.76 M/mm3 (3.60-5.2); RDW 13.8 % (11.6-15.6); WHITE BLOOD COUNT 15.2 K/mm3 (4.0-10.8)
[2021-01-13 11:47] LABS: CALCIUM 7.5 mg/dl (8.5-10); CREATININE 0.6 mg/dl (0.55-1.3)
[2021-01-13] MEDS ORDERED: ALBUTEROL SO4 0.083% IH SOL 2.5 MG/3 ML VIAL.NEB. NEB PRN (15:13)
[2021-01-13] MEDS: ALBUTEROL SO4 2.5/IPRATROPIUM 0.5 INH SOL 3 ML VIAL.NEB. NEB SCH ×2 (15:40→20:26)
[2021-01-13] MEDS: INSULIN SLIDING SCALE (NOVOLOG) 1 VIAL SQ SCH ×2 (17:06→22:16)
[2021-01-13 18:25] LABS: HEMATOCRIT 31.3 % (32.4-45.2); HEMOGLOBIN 10.3 GM/dl (10.7-15.3); MCH 30.5 pg (25.7-33.7); MCHC 32.9 g/dl (32.0-36.0); MEAN CELL VOLUME 92.7 fl (80-96); MEAN PLT VOLUME 8.6 fl (7.5-11.1); PLATELET COUNT 173 10^3/uL (134-434); RBC 3.38 M/mm3 (3.60-5.2); RDW 13.7 % (11.6-15.6); WHITE BLOOD COUNT 12.6 K/mm3 (4.0-10.8)
[2021-01-13] MEDS ORDERED: ALBUTEROL SO4 0.083% IH SOL 2.5 MG/3 ML VIAL.NEB. NEB SCH (20:00)
[2021-01-13] MEDS: ROSUVASTATIN CA 10 MG TABLET (FP) PO SCH (22:15)
[2021-01-13] MEDS: MONTELUKAST NA 10 MG TABLET PO SCH (22:15)
[2021-01-13] MEDS: FAMOTIDINE 20 MG TABLET PO SCH (22:15)
[2021-01-13] MEDS ORDERED: PT OWN MED DRAWER 7, Y5N ONE (22:22)
[2021-01-13] MEDS: DOLUTEGRAVIR SODIUM 50 MG TABLET (NON-FORMULARY) PO SCH (22:24)
[2021-01-13] MEDS: INSULIN (LEVEMIR) 100 UNITS/ML UNITS SQ SCH (22:34)
[2021-01-14] MEDS: oxyCODONE HCL 5 MG TABLET PO PRN ×2 (05:51→13:35)
[2021-01-14] MEDS: INSULIN SLIDING SCALE (NOVOLOG) 1 VIAL SQ SCH ×3 (06:47→16:28)
[2021-01-14] MEDS: PIOGLITAZONE HCL 15 MG TABLET PO SCH (06:47)
[2021-01-14 06:59] VITALS: TEMP 98.4
[2021-01-14 07:34] LABS: BASO % 0.4 % (0-2.0); EOS % 1.9 % (0-4.5); HEMATOCRIT 31.2 % (32.4-45.2); HEMOGLOBIN 10.4 GM/dl (10.7-15.3); LYMPH % 10.5 % (8-40); MCH 30.4 pg (25.7-33.7); MCHC 33.4 g/dl (32.0-36.0); MEAN CELL VOLUME 91.1 fl (80-96); MEAN PLT VOLUME 7.9 fl (7.5-11.1); NEUT % 77.2 % (42.8-82.8); PLATELET COUNT 220 10^3/uL (134-434); RBC 3.42 M/mm3 (3.60-5.2); WHITE BLOOD COUNT 12.3 K/mm3 (4.0-10.8)
[2021-01-14 07:52] LABS: ALBUMIN 2.4 g/dl (3.4-5.0); BILIRUBIN,TOTAL 0.6 mg/dl (0.2-1); CALCIUM 7.7 mg/dl (8.5-10); CREATININE 0.4 mg/dl (0.55-1.3); MAGNESIUM 0.9 mg/dL (1.8-2.4)
[2021-01-14] MEDS ORDERED: POTASSIUM CHLORIDE TABS 20 MEQ TABLET.ER (FP) PO ONE (08:46)
[2021-01-14] MEDS ORDERED: MAGNESIUM SULF 50% (8.12 MEQ/2 ML-1 GM VIAL) IVPB ONE (08:46)
[2021-01-14] MEDS: HYDROmorphone HCl 2 MG/ML VIAL IVPB PRN (08:50)
[2021-01-14] MEDS: ALBUTEROL SO4 2.5/IPRATROPIUM 0.5 INH SOL 3 ML VIAL.NEB. NEB SCH ×2 (08:51→14:00)
[2021-01-14] MEDS ORDERED: REFRIGERATED ANITBIOTICS ONE ×2 (08:58→09:24)
[2021-01-14] MEDS: SENNOSIDES/DOCUSATE COMBO (SENNA PLUS) TABLET (UD) PO SCH (09:10)
[2021-01-14] MEDS: DOXYCYCLINE HYCLATE 100 MG CAPSULE PO SCH (09:11)
[2021-01-14] MEDS: CELECOXIB 200 MG CAPSULE PO SCH (09:11)
[2021-01-14] MEDS: ASPIRIN 81 MG CHEWABLE TABLETS PO SCH (09:13)
[2021-01-14] MEDS: PANTOPRAZOLE 40 MG TABLET PO SCH (09:13)
[2021-01-14] MEDS ORDERED: PT OWN MED DRAWER 7, Y5N ONE (09:15)
[2021-01-14] MEDS: EMTRICITABINE/TENOFOV ALAFENAM (DESCOVY) TABLET PO SCH (09:16)
[2021-01-14] MEDS: valACYclovir HCL 500 MG TABLET (FP) PO SCH (09:28)
[2021-01-14] MEDS: BUDESONIDE/FORMETEROL FUMARATE 160/4.5 mcg INHALER IH SCH (09:28)
[2021-01-14] MEDS ORDERED: LORATADINE 10 MG TABLET PO SCH (10:00)
[2021-01-14 16:22] VITALS: BP 105/55; PULSE 97
== END 2021-01-14 17:46 | DRG 467 ==
LOC: FM/S 07:23
PROVIDERS: ADMIT Orthopaedic Surgery Orthopaedic Surgery of the Spine; ATTEND Orthopaedic Surgery Orthopaedic Surgery of the Spine
PROC: 0SPB0JZ Removal of Synthetic Substitute from Left Hip Joint, Open Approach (ICD-10-PCS; 2021-01-12)
PROC: 30233N1 Transfusion of Nonautologous Red Blood Cells into Peripheral Vein, Percutaneous Approach (ICD-10-PCS; 2021-01-12)
PROC: 0SRB0J9 Replacement of Left Hip Joint with Synthetic Substitute, Cemented, Open Approach (ICD-10-PCS; principal; 2021-01-12 13:04)
DX: T84.52XA Infection and inflammatory reaction due to internal left hip prosthesis, initial encounter (principal); E24.9 Cushing's syndrome, unspecified; Y83.8 Other surgical procedures as the cause of abnormal reaction of the patient, or of later complication, without mention of misadventure at the time of the procedure; I10 Essential (primary) hypertension; E78.5 Hyperlipidemia, unspecified; E11.9 Type 2 diabetes mellitus without complications; J45.909 Unspecified asthma, uncomplicated; D71 Functional disorders of polymorphonuclear neutrophils; G47.33 Obstructive sleep apnea (adult) (pediatric); K21.9 Gastro-esophageal reflux disease without esophagitis; R09.02 Hypoxemia; Z21 Asymptomatic human immunodeficiency virus [HIV] infection status; E66.9 Obesity, unspecified; Z68.36 Body mass index [BMI] 36.0-36.9, adult; R91.1 Solitary pulmonary nodule
CPT/HCPCS: 36415; 36430; 71045-TC-FY; 71250-TC; 73502-TC-LT-FY; 80048; 80053; 82962; 83735; 85025; 85027; 86850; 86900; 86901; 86922; 88304-TC; 88305-TC; 88307-TC; 88311-TC; 88331-TC; 88332; 94640; 94660; 94760; 97116-GP; 97163-GP; C9803; J0131; P9058; U0003; U0005